=== PATIENT | female | born 1985 | race American Indian/Alaskan Native ===

== ENCOUNTER 2020-12-20 19:27 | Inpatient (IN) | payer SELFPAY ==
--- NOTE | 2020-12-20 21:12 | Emergency Department Report ---
ED General Adult HPI - General Chief complaint: Chest Pain Stated complaint: CHEST PAIN Time Seen by Provider: 12/20/20 21:08 Source: patient Mode of arrival: Ambulatory Limitations: No Limitations - History of Present Illness Initial comments: 35-year-old female patient with history of tobacco use presents to the emergency department with complaints of chest pain for 2 weeks. Patient describes the chest pain as "tightness," localized to the right side of her chest, episodic in nature, radiating underneath her right breast, lasting several minutes at a time, without identifiable exacerbating or relieving factors. Patient tested positive for COVID-19 on November 25. The chest pain did not start until after her other COVID-19 symptoms resolved. No other venous thromboembolism risk factors identified on history. No history of hypertension, hyperlipidemia, diabetes. No family history of early heart disease. Denies fever, chills, cough, wheezing, palpitations, syncope, lower extremity pain/swelling. Denies all other complaints at this time. - Related Data Allergies Allergy/AdvReac Type Severity Reaction Status Date / Time No Known Allergies Allergy Unverified 12/20/20 20:58 ED Review of Systems ROS: Stated complaint: CHEST PAIN Other details as noted in HPI Other: GENERAL: Negative for fever, chills, weight change, anorexia, fatigue. ENT: Negative for ear pain, difficulty hearing, sore throat, nasal congestion, epistaxis. CARDIOVASCULAR: Positive for chest pain. PULMONARY: Positive for shortness of breath. GASTROINTESTINAL: Negative for abdominal pain, nausea, vomiting, diarrhea, constipation. MUSCULOSKELETAL: Negative for joint pain, joint swelling, myalgias, back pain, neck pain. NEUROLOGICAL: Negative for headache, seizure, syncope, paresthesias, weakness. INTEGUMENTARY: Negative for erythema, rash, diaphoresis, laceration, ecchymosis. HEMATOLOGICAL: Negative for hemoptysis, hematemesis, hematochezia, hematuria. PSYCHIATRIC: Negative for hallucinations, suicidal ideation, homicidal ideation, anxiety, depression. ED Past Medical Hx - Past Medical History Previous Medical History?: No - Surgical History Past Surgical History?: Yes Additional Surgical History: TL ED Physical Exam - General Limitations: No Limitations - Other Other exam information: General: Awake and alert. No acute distress. Head: Atraumatic, normocephalic. Eyes: EOMI. Pupils are equal and round. Normal sclera and conjunctiva. ENT: Oral mucosa is moist. Normal pharyngeal exam. Neck: Supple. No lymphadenopathy. Pulmonary: No respiratory distress. Clear to auscultation bilaterally. Cardiac: Regular rate and rhythm. Pulses are palpable and equal bilaterally. No lower extremity cyanosis or edema. Skin: Warm and dry. No rashes. Abdomen: Soft, non-protuberant. Mild epigastric and RUQ tenderness without guarding, rigidity, or rebound. Bowel sounds are normal. No organomegaly or masses noted. Back: Normal alignment. No CVA tenderness. Extremities: Symmetrical. Full range of motion intact. Neurological: Alert and oriented, appropriately interactive, no focal deficits. Psych: Cooperative. Appropriate mood and affect. Speech is evenly metered. Thoughts are logically construed. ED Course Vital Signs 12/20/20 20:58 Temperature 98.7 F Pulse Rate 85 Respiratory 18 Rate Blood Pressure 115/75 [Right] O2 Sat by Pulse 100 Oximetry ED Medical Decision Making - Lab Data Result diagrams: 12/20/20 21:17 12/20/20 21:17 - Radiology Data [facility] [address] [place] [address] Ultrasound Report Signed Patient: REJI GUZMÁN MR#: [id number] : 1985 Acct:[id number] Age/Sex: 35 / F ADM Date: 12/20/20 Loc: ED Attending Dr: Ordering Physician: KATE JESSICA Date of Service: 12/20/20 Procedure(s): US abdomen complete Accession Number(s): [id number] cc: KATE JESSICA ULTRASOUND ABDOMEN, COMPLETE INDICATION: right chest/RUQ pain - elevated LFT's COMPARISON: None available. FINDINGS: Pancreas: Normal. Abdominal Aorta: Normal. IVC: Normal. Liver: Normal. Gallbladder: There are numerous stones filling the gallbladder. Bile ducts: Normal. Common Bile Duct measures 5-6 mm. Right Kidney: Normal. Left Kidney: Normal. Spleen: Normal. Free fluid: None. Additional Findings: None. IMPRESSION: 1. Cholelithiasis. No sonographic evidence of acute cholecystitis. No biliary dilatation. 2. Otherwise unremarkable abdominal ultrasound. Signer Name: Alfa Flores MD Signed: 12/21/2020 12:02 AM Workstation Name: [id number] Transcribed By: BETTIE Dictated By: Alfa Flores MD Electronically Authenticated By: Alfa Flores MD Signed Date/Time: 12/21/20 0002 DD/ 2356 TD/TT: - Medical Decision Making Differential diagnosis including but not limited to: acute coronary syndrome, cardiac arrhythmia, pericarditis, pericardial effusion/cardiac tamponade, pleural effusion, pulmonary embolism, pneumonia, pneumothorax 21:08: Ordered EKG, labs, CXR. Requested cardiac catheterization technician and continuous pulse oximetry. 02:04: On reevaluation, patient remains stable. Pain is controlled. Labs show elevated liver enzymes. Abdominal ultrasound obtained for further evaluation. Ultrasound shows multiple gallstones. No evidence of cholecystitis or common bile duct dilatation. D-dimer was also significantly elevated; CTA of the chest is negative for PE. EKG is pending. Nurse aware of EKG order. Lipase is > 800. Presentation is most suggestive of gallstone pancreatitis however patient also endorses occasional alcohol use upon further interrogation, last alcohol use was less than 1 week ago. Case discussed with Dr. Lugo, planer offbearer, who agrees to evaluate patient in the morning following admission to hospitalist service. Case discussed with hospitalist, who agrees to admit. Patient expressed understanding and is agreeable to plan of care. Patient is NPO. Given IV fluids, analgesics, antiemetics. Case discussed with Dr. Bradshaw, attending emergency physician, who agrees with diagnostic work-up/plan of care. Critical care attestation.: If time is entered above; I have spent that time in minutes in the direct care of this critically ill patient, excluding procedure time. ED Disposition Clinical Impression: History of alcohol use, Transaminitis Pancreatitis Qualifiers: Chronicity: acute Pancreatitis type: unspecified pancreatitis type Acute pancreatitis complication: unspecified Qualified Code(s): K85.90 - Acute pancreatitis without necrosis or infection, unspecified Cholelithiasis Qualifiers: Cholelithiasis location: gallbladder Cholecystitis presence: without cholecystitis Biliary obstruction: without biliary obstruction Qualified Code(s): K80.20 - Calculus of gallbladder without cholecystitis without obstruction Disposition: ADMITTED INPATIENT Is pt being admited?: Yes Does the pt Need Aspirin: No Condition: Stable Time of Disposition: 02:10
[2020-12-20 21:38] LABS: Basophils % (Auto) 0.2 % (0.0-1.8); Eosinophils # (Auto) 0.3 K/mm3 (0.0-0.4); Eosinophils % (Auto) 2.6 % (0.0-4.3); Hematocrit 37.1 % (30.3-42.9); Hemoglobin 12.3 gm/dl (10.1-14.3); Lymphocytes # (Auto) 2.5 K/mm3 (1.2-5.4); Lymphocytes % (Auto) 23.8 % (13.4-35.0); Mean Corpuscular HGB Conc 33 % (30-34); Mean Corpuscular Volume 91 fl (79-97); Monocytes # (Auto) 0.5 K/mm3 (0.0-0.8); Monocytes % (Auto) 4.8 % (0.0-7.3); Platelet Count 264 K/mm3 (140-440); Red Blood Count 4.08 M/mm3 (3.65-5.03); Red Cell Distribution Width 13.9 % (13.2-15.2)
[2020-12-20 22:17] LABS: Alanine Aminotransferase 185 units/L (7-56); Blood Urea Nitrogen 9 mg/dL (7-17); Hemolysis Index 20
[2020-12-20 22:18] LABS: BUN/Creatinine Ratio 15
--- NOTE | 2020-12-20 22:33 | XRay Report ---
CHEST 2 VIEWS INDICATION / CLINICAL INFORMATION: chest pain. COMPARISON: None available. FINDINGS: SUPPORT DEVICES: None. HEART / MEDIASTINUM: No significant abnormality. LUNGS / PLEURA: No significant pulmonary or pleural abnormality. No pneumothorax. ADDITIONAL FINDINGS: No significant additional findings. IMPRESSION: 1. No acute findings. Signer Name: Ike Marvin DO Signed: 12/20/2020 10:29 PM Workstation Name: [id number]
--- NOTE | 2020-12-21 00:06 | Ultrasound Report ---
ULTRASOUND ABDOMEN, COMPLETE INDICATION: right chest/RUQ pain - elevated LFT's COMPARISON: None available. FINDINGS: Pancreas: Normal. Abdominal Aorta: Normal. IVC: Normal. Liver: Normal. Gallbladder: There are numerous stones filling the gallbladder. Bile ducts: Normal. Common Bile Duct measures 5-6 mm. Right Kidney: Normal. Left Kidney: Normal. Spleen: Normal. Free fluid: None. Additional Findings: None. IMPRESSION: 1. Cholelithiasis. No sonographic evidence of acute cholecystitis. No biliary dilatation. 2. Otherwise unremarkable abdominal ultrasound. Signer Name: Alfa Flores MD Signed: 12/21/2020 12:02 AM Workstation Name: [id number]
--- NOTE | 2020-12-21 01:39 | Cat Scan Report ---
CTA CHEST WITH IV CONTRAST INDICATION: Pt complains of chest pain, recent positive COVID-19, r/o PE. TECHNIQUE: Axial CT images were obtained through the chest after injection of IV contrast. 3 plane MIP reconstru ctions were produced. All CT scans at this location are performed using CT dose reduction for ALARA b y means of automated exposure control. COMPARISON: None available. FINDINGS: Pulmonary Arteries: No pulmonary emboli. Thoracic Aorta: No acute abnormality. Heart: Normal. Lungs: No acute air space or interstitial disease. Pleura: No pleural effusion. No pneumothorax. Lymph Nodes: No significant adenopathy. Additional Findings: None. Upper Abdomen: There is minimal cholelithiasis. Gallbladder is contracted. Skeletal Structures: No significant osseous abnormality. IMPRESSION: 1. No CT evidence for pulmonary embolism. 2. No acute findings. Signer Name: Alfa Flores MD Signed: 12/21/2020 1:34 AM Workstation Name: [id number]
[2020-12-21] MEDS ORDERED: HYDROmorphone 1 MG/1 ML INJ IV ONE (01:46)
[2020-12-21] MEDS ORDERED: ONDANSETRON 4 MG/2 ML INJ IV ONE (01:46)
[2020-12-21] MEDS ORDERED: SODIUM CHLORIDE 0.9% 1000 ML 1,000 ML IV ONE (01:46)
[2020-12-21] MEDS ORDERED: ONDANSETRON 4 MG/2 ML INJ IV PRN (02:30)
[2020-12-21] MEDS ORDERED: oxyCODONE /ACETAMINOPHEN 5-325MG TAB PO PRN (02:30)
[2020-12-21] MEDS ORDERED: ACETAMINOPHEN 325 MG TAB PO PRN (02:30)
--- NOTE | 2020-12-21 02:37 | History and Physical Report ---
History of Present Illness Date of examination: 12/21/20 Date of admission: 12/21/20 02:11 Chief complaint: Chest pain History of present illness: 35-year-old female patient with history of tobacco and possibly alcohol abuse presents to the emergency department with complaints of chest pain for 2 weeks. chest pain as "tightness," localized to the right side of her chest, episodic in nature, radiating underneath her right breast, lasting several minutes at a donal e, without identifiable exacerbating or relieving factors. Patient tested positive for COVID-19 on November 25. The chest pain did not start until after her other COVID-19 symptoms resolved. No other venous thromboembolism risk factors identified on history. In the emergency room patient is found to have gallstone pancreatitis. Patient abdominal ultrasound showed cholelithiasis. No sonographic evidence of acute cholecystitis. No biliary dilatation. Otherwise unremarkable abdominal ultra sound. Patient lipase is 815. AST 363 and ALT 185 alkaline phosphatase 134. Med rec need to be done. Advance discharge process is initiated Past History Past Medical History: other (Tobacco and alcohol abuse) Medications and Allergies Allergies Allergy/AdvReac Type Severity Reaction Status Date / Time No Known Allergies Allergy Unverified 12/20/20 20:58 Active Meds: Active Medications Sodium Chloride (Nacl 0.9% 1000 Ml) 1,000 mls @ 125 mls/hr IV ONCE ONE Stop: 12/21/20 09:45 Last Admin: 12/21/20 01:54 Dose: 125 mls/hr Documented by: Sodium Chloride (Sodium Chloride 0.9% 10 Ml Flush Syringe) 10 ml IV PRN PRN PRN Reason: LINE FLUSH Review of Systems All systems: negative Cardiovascular: chest pain Gastrointestinal: abdominal pain Exam - Constitutional Vitals: Temp Pulse Resp BP Pulse Ox 98.7 F 85 18 115/75 100 12/20/20 20:58 12/20/20 20:58 12/20/20 20:58 12/20/20 20:58 12/20/20 20:58 General appearance: Present: no acute distress, well-nourished - EENT Eyes: Present: PERRL ENT: hearing intact, clear oral mucosa - Neck Neck: Present: supple, normal ROM - Respiratory Respiratory effort: normal Respiratory: bilateral: CTA - Cardiovascular Heart Sounds: Present: S1 & S2. Absent: rub, click - Extremities Extremities: pulses symmetrical, No edema Peripheral Pulses: within normal limits - Abdominal General gastrointestinal: Present: soft, non-tender, non-distended, normal bowel sounds, other (Mild epigastric and right upper quadrant tenderness without guarding, rigidity or no rebound) Female genitourinary: Present: normal - Integumentary Integumentary: Present: clear, warm, dry - Musculoskeletal Musculoskeletal: gait normal, strength equal bilaterally - Psychiatric Psychiatric: appropriate mood/affect, intact judgment & insight - Neurologic Neurologic: CNII-XII intact, moves all extremities HEART Score - HEART Score Troponin: Troponin T < 0.010 ng/mL (0.00-0.029) 12/20/20 21:17 Results - Labs CBC & Chem 7: 12/20/20 21:17 12/20/20 21:17 Labs: Laboratory Last Values WBC 10.5 K/mm3 (4.5-11.0) 12/20/20 21:17 RBC 4.08 M/mm3 (3.65-5.03) 12/20/20 21:17 Hgb 12.3 gm/dl (10.1-14.3) 12/20/20 21:17 Hct 37.1 % (30.3-42.9) 12/20/20 21:17 MCV 91 fl (79-97) 12/20/20 21:17 MCH 30 pg (28-32) 12/20/20 21:17 MCHC 33 % (30-34) 12/20/20 21:17 RDW 13.9 % (13.2-15.2) 12/20/20 21:17 Plt Count 264 K/mm3 (140-440) 12/20/20 21:17 Lymph % (Auto) 23.8 % (13.4-35.0) 12/20/20 21:17 [place] % (Auto) 4.8 % (0.0-7.3) 12/20/20 21:17 Eos % (Auto) 2.6 % (0.0-4.3) 12/20/20 21:17 Baso % (Auto) 0.2 % (0.0-1.8) 12/20/20 21:17 Lymph # (Auto) 2.5 K/mm3 (1.2-5.4) 12/20/20 21:17 [place] # (Auto) 0.5 K/mm3 (0.0-0.8) 12/20/20 21:17 Eos # (Auto) 0.3 K/mm3 (0.0-0.4) 12/20/20 21:17 Baso # (Auto) 0.0 K/mm3 (0.0-0.1) 12/20/20 21:17 Seg Neutrophils % 68.6 % (40.0-70.0) 12/20/20 21:17 Seg Neutrophils # 7.2 K/mm3 (1.8-7.7) 12/20/20 21:17 D-Dimer 1308.05 ng/mlDDU (0-234) H 12/20/20 21:17 Sodium 136 mmol/L (137-145) L 12/20/20 21:17 Potassium 3.9 mmol/L (3.6-5.0) 12/20/20 21:17 Chloride 103.4 mmol/L (98-107) 12/20/20 21:17 Carbon Dioxide 21 mmol/L (22-30) L 12/20/20 21:17 Anion Gap 16 mmol/L 12/20/20 21:17 BUN 9 mg/dL (7-17) 12/20/20 21:17 Creatinine 0.6 mg/dL (0.6-1.2) 12/20/20 21:17 Estimated GFR > 60 ml/min 12/20/20 21:17 BUN/Creatinine Ratio 15 % 12/20/20 21:17 Glucose 94 mg/dL (65-100) 12/20/20 21:17 Calcium 9.0 mg/dL (8.4-10.2) 12/20/20 21:17 Magnesium 1.90 mg/dL (1.7-2.3) 12/20/20 21:17 Total Bilirubin 0.40 mg/dL (0.1-1.2) 12/20/20 21:17 AST 363 units/L (5-40) H 12/20/20 21:17 ALT 185 units/L (7-56) H 12/20/20 21:17 Alkaline Phosphatase 134 units/L (35-129) H 12/20/20 21:17 Troponin T < 0.010 ng/mL (0.00-0.029) 12/20/20 21:17 Total Protein 7.4 g/dL (6.3-8.2) 12/20/20 21:17 Albumin 4.0 g/dL (3.9-5) 12/20/20 21:17 Albumin/Globulin Ratio 1.2 % 12/20/20 21:17 Lipase 815 units/L (13-60) H 12/20/20 21:27 HCG, Qual Negative (Negative) 12/20/20 21:17 - Imaging and Cardiology CT scan - chest: report reviewed US - abdomen: report reviewed Assessment and Plan VTE prophylaxis?: Chemical Plan of care discussed with patient/family: Yes - Patient Problems (1) Pancreatitis Current Visit: Yes Status: Acute Qualifiers: Chronicity: acute Pancreatitis type: unspecified pancreatitis type Acute pancreatitis complication: unspecified Qualified Code(s): K85.90 - Acute pancreatitis without necrosis or infection, unspecified Plan to address problem: Admit the patient to the medical floor . N.p.o. IV fluid D5 half-normal saline at the rate of 100 cc/h. Pepcid 20 mg IV every 12 hours. Dilaudid 0.5 mg p.o. every 3 hours as needed. Will consult GI Dr. For further evaluation and treatment. Recheck CBC CMP in the morning (2) Cholelithiasis Current Visit: Yes Status: Acute Qualifiers: Cholelithiasis location: gallbladder Cholecystitis presence: without cholecystitis Biliary obstruction: without biliary obstruction Qualified Code(s): K80.20 - Calculus of gallbladder without cholecystitis without obstruction Plan to address problem: N.p.o. IV fluid D5 half-normal saline at the rate of 100 cc/h. Pepcid 20 mg IV every 12 hours. Dilaudid 0.5 mg p.o. every 3 hours as needed. Will consult GI Dr. For further evaluation and treatment. Recheck CBC CMP in the morning. Consult surgery if needed (3) History of alcohol use Current Visit: Yes Status: Acute Plan to address problem: We counseled regarding quit drinking. We put the patient on thiamine 100 mg p.o. daily, folic acid 1 mg p.o. daily. (4) Transaminitis Current Visit: Yes Status: Acute Plan to address problem: N.p.o. IV fluid D5 half-normal saline at the rate of 100 cc/h. Pepcid 20 mg IV every 12 hours. Dilaudid 0.5 mg p.o. every 3 hours as needed. Will consult GI Dr. For further evaluation and treatment. Recheck CBC CMP in the morning (5) DVT prophylaxis Current Visit: Yes Status: Acute Plan to address problem: Heparin 5000 units subcu every 8 hours for DVT prophylaxis. Pepcid 20 mg IV every 12 hours for GI prophylaxis. Patient is a full code
[2020-12-21] MEDS ORDERED: D5W/0.45% NACL 1,000 ML IV SCH (03:00)
--- NOTE | 2020-12-21 08:35 | Progress Note ---
Assessment and Plan Assessment and plan: History of present illness: 35-year-old female patient with history of tobacco and possibly alcohol abuse presents to the emergency department with complaints of chest pain for 2 weeks. chest pain as "tightness," localized to the right side of her chest, episodic in nature, radiating underneath her right breast, lasting several minutes at a time, without identifiable exacerbating or relieving factors. Patient tested positive for COVID-19 on November 25. The chest pain did not start until after her other COVID-19 symptoms resolved. No other venous thromboembolism risk factors identified on history. In the emergency room patient is found to have gallstone pancreatitis. Patient abdominal ultrasound showed cholelithiasis. No sonographic evidence of acute cholecystitis. No biliary dilatation. Otherwise unremarkable abdominal ultrasound. Patient lipase is 815. AST 363 and ALT 185 alkaline phosphatase 134. Hospital course to date: 12/21/2020: Follow GI and Gen surgery recs. continue NPO and pain control. Follow MRCP results. (1) Pancreatitis Plan to address problem: RUQ abdominal pain radiating to right shoulder. US abd: gallstones, no biliary duct dilation. N.p.o. IV fluid D5 half-normal saline at the rate of 100 cc/h. Pepcid 20 mg IV every 12 hours. Dilaudid 0.5 mg p.o. every 3 hours as needed. MRCP pending GI following patient General surgery consulted. Recheck CBC CMP in the morning (2) Cholelithiasis Plan to address problem: patient denies prior knowledge of gall stones and denies any prior symptoms typical of biliary colic. US findings as above MRCP pending Gen surgery consulted (3) History of alcohol use Plan to address problem: States she only uses recreationally. Denies heavy abuse Counseled on alcohol cessation. thiamine 100 mg p.o. daily, folic acid 1 mg p.o. daily. (4) Transaminitis Plan to address problem: AST 363, ALT 185, ALP 134. consistent with alcoholic pancreatitis. Elevated ALP possible stone obstruction now cleared. MRCP pending. (5) DVT prophylaxis Plan to address problem: Heparin 5000 units subcu every 8 hours for DVT prophylaxis. Pepcid 20 mg IV every 12 hours for GI prophylaxis. Patient is a full code History Interval history: Relatively asympomatic compared to initial presentation. Some mild RUQ tenderness noted upon palpation of RUQ Hospitalist Physical - Physical exam Narrative exam: General appearance: Present: no acute distress, well-nourished - EENT Eyes: Present: PERRL ENT: hearing intact, clear oral mucosa - Neck Neck: Present: supple, normal ROM - Respiratory Respiratory effort: normal Respiratory: bilateral: CTA - Cardiovascular Heart Sounds: Present: S1 & S2. Absent: rub, click - Extremities Extremities: pulses symmetrical, No edema Peripheral Pulses: within normal limits - Abdominal General gastrointestinal: Present: soft, non-tender, non-distended, normal bowel sounds, other (Mild epigastric and right upper quadrant tenderness without guarding, rigidity or no rebound) Female genitourinary: Present: normal - Integumentary Integumentary: Present: clear, warm, dry - Musculoskeletal Musculoskeletal: gait normal, strength equal bilaterally - Psychiatric Psychiatric: appropriate mood/affect, intact judgment & insight - Neurologic Neurologic: CNII-XII intact, moves all extremities - Constitutional Vitals: Temp Pulse Resp BP Pulse Ox 98.7 F 85 18 115/75 100 12/20/20 20:58 12/20/20 20:58 12/20/20 20:58 12/20/20 20:58 12/20/20 20:58 General appearance: Present: no acute distress, well-nourished HEART Score - HEART Score Troponin: Troponin T < 0.010 ng/mL (0.00-0.029) 12/20/20 21:17 Results - Labs CBC & Chem 7: 12/20/20 21:17 12/20/20 21:17 Labs: Laboratory Last Values WBC 10.5 K/mm3 (4.5-11.0) 12/20/20 21:17 RBC 4.08 M/mm3 (3.65-5.03) 12/20/20 21:17 Hgb 12.3 gm/dl (10.1-14.3) 12/20/20 21:17 Hct 37.1 % (30.3-42.9) 12/20/20 21:17 MCV 91 fl (79-97) 12/20/20 21:17 MCH 30 pg (28-32) 12/20/20 21:17 MCHC 33 % (30-34) 12/20/20 21:17 RDW 13.9 % (13.2-15.2) 12/20/20 21:17 Plt Count 264 K/mm3 (140-440) 12/20/20 21:17 Lymph % (Auto) 23.8 % (13.4-35.0) 12/20/20 21:17 [place] % (Auto) 4.8 % (0.0-7.3) 12/20/20 21:17 Eos % (Auto) 2.6 % (0.0-4.3) 12/20/20 21:17 Baso % (Auto) 0.2 % (0.0-1.8) 12/20/20 21:17 Lymph # (Auto) 2.5 K/mm3 (1.2-5.4) 12/20/20 21:17 [place] # (Auto) 0.5 K/mm3 (0.0-0.8) 12/20/20 21:17 Eos # (Auto) 0.3 K/mm3 (0.0-0.4) 12/20/20 21:17 Baso # (Auto) 0.0 K/mm3 (0.0-0.1) 12/20/20 21:17 Seg Neutrophils % 68.6 % (40.0-70.0) 12/20/20 21:17 Seg Neutrophils # 7.2 K/mm3 (1.8-7.7) 12/20/20 21:17 D-Dimer 1308.05 ng/mlDDU (0-234) H 12/20/20 21:17 Sodium 136 mmol/L (137-145) L 12/20/20 21:17 Potassium 3.9 mmol/L (3.6-5.0) 12/20/20 21:17 Chloride 103.4 mmol/L (98-107) 12/20/20 21:17 Carbon Dioxide 21 mmol/L (22-30) L 12/20/20 21:17 Anion Gap 16 mmol/L 12/20/20 21:17 BUN 9 mg/dL (7-17) 12/20/20 21:17 Creatinine 0.6 mg/dL (0.6-1.2) 12/20/20 21:17 Estimated GFR > 60 ml/min 12/20/20 21:17 BUN/Creatinine Ratio 15 % 12/20/20 21:17 Glucose 94 mg/dL (65-100) 12/20/20 21:17 Calcium 9.0 mg/dL (8.4-10.2) 12/20/20 21:17 Magnesium 1.90 mg/dL (1.7-2.3) 12/20/20 21:17 Total Bilirubin 0.40 mg/dL (0.1-1.2) 12/20/20 21:17 AST 363 units/L (5-40) H 12/20/20 21:17 ALT 185 units/L (7-56) H 12/20/20 21:17 Alkaline Phosphatase 134 units/L (35-129) H 12/20/20 21:17 Troponin T < 0.010 ng/mL (0.00-0.029) 12/20/20 21:17 Total Protein 7.4 g/dL (6.3-8.2) 12/20/20 21:17 Albumin 4.0 g/dL (3.9-5) 12/20/20 21:17 Albumin/Globulin Ratio 1.2 % 12/20/20 21:17 Lipase 815 units/L (13-60) H 12/20/20 21:27 HCG, Qual Negative (Negative) 12/20/20 21:17 Active Medications - Current Medications Current Medications: Generic Name Dose Route Start Last Admin Trade Name Freq PRN Reason Stop Dose Admin Acetaminophen 650 mg 12/21/20 02:30 Acetaminophen 325 Mg Tab PO Q4H PRN Pain MILD(1-3)/Fever >100.5/CHRISTINA Famotidine 20 mg 12/21/20 10:00 Famotidine 20 Mg/2 Ml Inj IV BID BRANDON Folic Acid 1 mg 12/21/20 10:00 Folic Acid 1 Mg Tab PO QDAY BRANDON Heparin Sodium (Porcine) 5,000 unit 12/21/20 06:00 Heparin 5,000 Unit/1 Ml Vial SUB-Q Q8HR BRANDON Hydromorphone HCl 0.5 mg 12/21/20 02:30 Hydromorphone 1 Mg/1 Ml Inj IV Q3H PRN Pain , Severe (7-10) Sodium Chloride 1,000 mls @ 125 mls/hr 12/21/20 01:46 12/21/20 01:54 Nacl 0.9% 1000 Ml IV 12/21/20 09:45 125 mls/hr ONCE ONE Administration Dextrose/Sodium Chloride 1,000 mls @ 100 mls/hr 12/21/20 03:00 D5/0.45ns IV DIRECT BRANDON Ondansetron HCl 4 mg 12/21/20 02:30 Ondansetron 4 Mg/2 Ml Inj IV Q8H PRN Nausea And Vomiting Oxycodone/Acetaminophen 1 tab 12/21/20 02:30 Oxycodone /Acetaminophen 5-325mg Tab PO Q6H PRN Pain, Moderate (4-6) Sodium Chloride 10 ml 12/21/20 10:00 Sodium Chloride 0.9% 10 Ml Flush Syringe IV BID BRANDON Sodium Chloride 10 ml 12/21/20 02:30 Sodium Chloride 0.9% 10 Ml Flush Syringe IV PRN PRN LINE FLUSH Thiamine HCl 100 mg 12/21/20 10:00 Thiamine 100 Mg Tab PO QDAY BRANDON
[2020-12-21] MEDS: HEPARIN 5,000 UNIT/1 ML VIAL SUB-Q SCH ×2 (08:44→15:19)
--- NOTE | 2020-12-21 10:17 | Electrocardiograph Report ---
[facility] Test Date: 2020-12-21 Test Time: 02:14:52 Pat Name: REJI GUZMÁN Department: Room: [place] [address] Gender: F Train Attendant: [id number] : 1985 Requested By: SOM WOLFE Order Number: [id number] Reading MD: Cb Dubois Measurements Intervals Todd Rate: 73 P: 55 MA: 150 QRS: 77 QRSD: 79 T: 54 QT: 392 QTc: 432 Interpretive Statements Sinus rhythm No previous ECG available for comparison Electronically Signed On 12-21-2020 10:16:38 EDT by Cb Dubois
[2020-12-21] MEDS: THIAMINE 100 MG TAB PO SCH (11:30)
[2020-12-21] MEDS: FAMOTIDINE 20 MG/2 ML INJ IV SCH (11:30)
[2020-12-21] MEDS: FOLIC ACID 1 MG TAB PO SCH (11:30)
--- NOTE | 2020-12-21 12:11 | Gastroenterology Consultation ---
History of Present Illness - Reason for Consult Consult date: 12/21/20 gallstone pancreatitis Requesting physician: MADDISON ARAMBULA - History of Present Illness This is a 35 yo female presenting to the ED for chest pain x 2 weeks. GI consulted for pancreatitis. Patient reports having COVID with upper respiratory symptoms treated with OTC medications recently. Test positive on 11/25/2020. She started having chest pain radiating under her right breast. No nausea/vomiting, diarrhea, or blood in the stools. In the ED, CT chest showed no signs of PE. Labs remarkable for lipase 815, AST 363, ALT 185, alk phos 134. US showed gallstones, no signs of acute cholecystit is, and no biliary ductal dilatation. No prior h/o pancreatitis or liver disease. Reports occasional alcohol use with last use last week. No new medications started. Medication list reviewed. Past History Past Medical History: other (Tobacco and alcohol abuse) Medications and Allergies Allergies Allergy/AdvReac Type Severity Reaction Status Date / Time No Known Allergies Allergy Verified 12/21/20 02:36 Active Meds: Active Medications Acetaminophen (Acetaminophen 325 Mg Tab) 650 mg PO Q4H PRN PRN Reason: Pain MILD(1-3)/Fever >100.5/CHRISTINA Famotidine (Famotidine 20 Mg/2 Ml Inj) 20 mg IV BID [facility] Last Admin: 12/21/20 11:30 Dose: 20 mg Documented by: Folic Acid (Folic Acid 1 Mg Tab) 1 mg PO QDAY [facility] Last Admin: 12/21/20 11:30 Dose: 1 mg Documented by: Heparin Sodium (Porcine) (Heparin 5,000 Unit/1 Ml Vial) 5,000 unit SUB-Q Q8HR [facility] Last Admin: 12/21/20 08:44 Dose: Not Given Documented by: Hydromorphone HCl (Hydromorphone 1 Mg/1 Ml Inj) 0.5 mg IV Q3H PRN PRN Reason: Pain , Severe (7-10) Dextrose/Sodium Chloride (D5/0.45ns) 1,000 mls @ 100 mls/hr IV DIRECT [facility] Ondansetron HCl (Ondansetron 4 Mg/2 Ml Inj) 4 mg IV Q8H PRN PRN Reason: Nausea And Vomiting Oxycodone/Acetaminophen (Oxycodone /Acetaminophen 5-325mg Tab) 1 tab PO Q6H PRN PRN Reason: Pain, Moderate (4-6) Sodium Chloride (Sodium Chloride 0.9% 10 Ml Flush Syringe) 10 ml IV BID [facility] Last Admin: 12/21/20 11:30 Dose: 10 ml Documented by: Sodium Chloride (Sodium Chloride 0.9% 10 Ml Flush Syringe) 10 ml IV PRN PRN PRN Reason: LINE FLUSH Thiamine HCl (Thiamine 100 Mg Tab) 100 mg PO QDAY [facility] Last Admin: 12/21/20 11:30 Dose: 100 mg Documented by: Review of Systems - Review of Systems All systems: negative Constitutional: no weight loss, no weight gain, no fever, no chills Cardiovascular: chest pain, no edema, no palpitations Respiratory: no cough, no shortness of breath Gastrointestinal: abdominal pain, no nausea, no vomiting, no diarrhea, no constipation, no melena, no hematochezia Musculoskeletal: no gait dysfunction Neurological: no head injury, no weakness Psychiatric: no anxiety Endocrine: no cold intolerance Hematologic/Lymphatic: no easy bruising Allergic/Immunologic: no wheezing Exam - Constitutional Vital Signs: Temp Pulse Resp BP Pulse Ox 98.7 F 69 12 105/58 100 12/20/20 20:58 12/21/20 11:31 12/21/20 11:31 12/21/20 11:31 12/21/20 11:31 General appearance: no acute distress - EENT Eyes: EOM intact ENT: hearing intact - Respiratory Respiratory effort: normal - Cardiovascular Rhythm: regular Heart Sounds: Present: S1 & S2 - Gastrointestinal General gastrointestinal: Present: soft, tender, non-distended - Integumentary Integumentary: Present: clear, warm - Neurologic Neurological: alert and oriented x3 - Labs CBC & Chem 7: 12/20/20 21:17 12/20/20 21:17 Lab Results: Laboratory Results - last 24 hr 12/20/20 12/20/20 12/20/20 21:17 21:17 21:17 WBC 10.5 RBC 4.08 Hgb 12.3 Hct 37.1 MCV 91 MCH 30 MCHC 33 RDW 13.9 Plt Count 264 Lymph % (Auto) 23.8 Churchill % (Auto) 4.8 Eos % (Auto) 2.6 Baso % (Auto) 0.2 Lymph # (Auto) 2.5 Churchill # (Auto) 0.5 Eos # (Auto) 0.3 Baso # (Auto) 0.0 Seg Neutrophils % 68.6 Seg Neutrophils # 7.2 D-Dimer 1308.05 H Sodium 136 L Potassium 3.9 Chloride 103.4 Carbon Dioxide 21 L Anion Gap 16 BUN 9 Creatinine 0.6 Estimated GFR > 60 BUN/Creatinine Ratio 15 Glucose 94 Calcium 9.0 Magnesium 1.90 Total Bilirubin 0.40 AST 363 H ALT 185 H Alkaline Phosphatase 134 H Troponin T < 0.010 Total Protein 7.4 Albumin 4.0 Albumin/Globulin Ratio 1.2 Lipase HCG, Qual 12/20/20 12/20/20 21:17 21:27 WBC RBC Hgb Hct MCV MCH MCHC RDW Plt Count Lymph % (Auto) Churchill % (Auto) Eos % (Auto) Baso % (Auto) Lymph # (Auto) Churchill # (Auto) Eos # (Auto) Baso # (Auto) Seg Neutrophils % Seg Neutrophils # D-Dimer Sodium Potassium Chloride Carbon Dioxide Anion Gap BUN Creatinine Estimated GFR BUN/Creatinine Ratio Glucose Calcium Magnesium Total Bilirubin AST ALT Alkaline Phosphatase Troponin T Total Protein Albumin Albumin/Globulin Ratio Lipase 815 H HCG, Qual Negative - Imaging Ultrasound: report reviewed Assessment and Plan This is a 35 yo female presenting to the ED for chest pain x 2 weeks. GI c onsulted for pancreatitis. # Acute pancreatitis - Labs remarkable for lipase 815, AST 363, ALT 185, alk phos 134. - US showed gallstones, no signs of acute cholecystitis, and no biliary ductal dilatation. - etiology possibly 2/2 alcohol vs gallstone pancreatitis - HD stable. Rec - keep NPO - IVF resuscitation - will recheck labs including LFTs, INR, and viral hep panel - recommend MRCP to evaluate for any choledocholithiasis - consult surgery. Discussed with Dr. Estrella. - will follow.
[2020-12-21 14:27] LABS: Albumin 3.9 g/dL (3.9-5); Bilirubin,Direct 0.7 mg/dL (0-0.2)
[2020-12-21 14:28] LABS: INR 0.97 (0.87-1.13)
[2020-12-21 14:47] LABS: Alanine Aminotransferase > 700 units/L (7-56)
[2020-12-21] MEDS ORDERED: LIDOCAINE VISCOUS 2% 15 ML ORAL LIQD PO SCH (15:30)
--- NOTE | 2020-12-21 15:53 | Magnetic Resonance Report ---
MRI ABDOMEN WITHOUT CONTRAST INDICATION / CLINICAL INFORMATION: rule out biliary obstruction. TECHNIQUE: Multiplanar, multisequence series were obtained through the abdomen. COMPARISON: Complete abdominal ultrasound dated 12/20/2020 FINDINGS: LOWER CHEST: No significant abnormality. LIVER: No significant abnormality. GALLBLADDER: Cholelithiasis. No pericholecystic fluid. BILE DUCTS: No choledocholithiasis. No intra or extrahepatic biliary ductal dilatation. PANCREAS: No significant abnormality. SPLEEN: No significant abnormality. ADRENALS: No significant abnormality. RIGHT KIDNEY / URETER: No significant abnormality. LEFT KIDNEY / URETER: No significant abnormality. STOMACH / VISUALIZED BOWEL: No significant abnormality. PERITONEUM: No free fluid. No free air. No fluid collection. LYMPH NODES: No significant adenopathy. AORTA / ARTERIES: No significant abnormality. IVC / VEINS: No significant abnormality. ADDITIONAL FINDINGS: None. SKELETAL SYSTEM: No significant abnormality. IMPRESSION: 1. Cholelithiasis. 2. Normal bile ducts without evidence of choledocholithiasis. Signer Name: Ike Marvin DO Signed: 12/21/2020 3:49 PM Workstation Name: [id number]
[2020-12-21 16:36] LABS: Hepatitis C Virus Antibody Non-Reactive (NonReactive)
[2020-12-21 16:58] LABS: Hepatitis B Surface Antigen Nonreactive (Negative)
[2020-12-21] MEDS ORDERED: BENZOCAINE/MENTHOL LOZENGE MM PRN (18:35)
[2020-12-21] MEDS ORDERED: PHENOL 1.4% 177 ML BOTTLE MM PRN (18:35)
[2020-12-21] MEDS ORDERED: SODIUM CHLORIDE 0.9% 1000 ML 1,000 ML IV SCH (18:45)
--- NOTE | 2020-12-21 18:46 | Consultation ---
History of Present Illness Consult date: 12/21/20 Reason for consult: gallstones Chief complaint: chest pain - History of present illness History of present illness: 35 yo F with no PMHx who presents to ER with chest pain radiating to the right upper abdomen, back and shoulder that started yesterday. The pain is intermittent and occurred 2 times yesterday. She has had similar pain several other times in the past but did not seek medical evaluation. Pain is dull. She has not noticed any association with food. No alleviating or exacerbating factors. No f/c, n/v, sob. No diarrhea or constipation. Past History Past Medical History: No medical history, other (Tobacco and alcohol abuse) Past Surgical History: Other (tubal ligation, oral surgery) Social history: smoking (5-6 cigarettes per day), alcohol abuse (social, infrequent) Family history: no significant family history Medications and Allergies Allergies Allergy/AdvReac Type Severity Reaction Status Date / Time No Known Allergies Allergy Verified 12/21/20 02:36 Active Meds: Active Medications Acetaminophen (Acetaminophen 325 Mg Tab) 650 mg PO Q4H PRN PRN Reason: Pain MILD(1-3)/Fever >100.5/CHRISTINA Benzocaine/Menthol (Benzocaine/Menthol Lozenge) 1 each MM Q2HR PRN PRN Reason: Sore Throat Famotidine (Famotidine 20 Mg/2 Ml Inj) 20 mg IV BID COUNTS INCLUDE 234 BEDS AT THE [facility] Last Admin: 12/21/20 11:30 Dose: 20 mg Documented by: Folic Acid (Folic Acid 1 Mg Tab) 1 mg PO QDAY COUNTS INCLUDE 234 BEDS AT THE [facility] Last Admin: 12/21/20 11:30 Dose: 1 mg Documented by: Heparin Sodium (Porcine) (Heparin 5,000 Unit/1 Ml Vial) 5,000 unit SUB-Q Q8HR COUNTS INCLUDE 234 BEDS AT THE [facility] Last Admin: 12/21/20 15:19 Dose: Not Given Documented by: Hydromorphone HCl (Hydromorphone 1 Mg/1 Ml Inj) 0.5 mg IV Q3H PRN PRN Reason: Pain , Severe (7-10) Sodium Chloride (Nacl 0.9% 1000 Ml) 1,000 mls @ 150 mls/hr IV DIRECT [facility] Lidocaine HCl (Lidocaine Viscous 2% 15 Ml Oral Liqd) 15 ml PO ONCE [facility] Stop: 12/21/20 19:30 Ondansetron HCl (Ondansetron 4 Mg/2 Ml Inj) 4 mg IV Q8H PRN PRN Reason: Nausea And Vomiting Oxycodone/Acetaminophen (Oxycodone /Acetaminophen 5-325mg Tab) 1 tab PO Q6H PRN PRN Reason: Pain, Moderate (4-6) Phenol (Phenol 1.4% 177 Ml Bottle) 1 spray MM PRN PRN PRN Reason: Sore Throat Sodium Chloride (Sodium Chloride 0.9% 10 Ml Flush Syringe) 10 ml IV BID COUNTS INCLUDE 234 BEDS AT THE [facility] Last Admin: 12/21/20 11:30 Dose: 10 ml Documented by: Sodium Chloride (Sodium Chloride 0.9% 10 Ml Flush Syringe) 10 ml IV PRN PRN PRN Reason: LINE FLUSH Thiamine HCl (Thiamine 100 Mg Tab) 100 mg PO QDAY COUNTS INCLUDE 234 BEDS AT THE [facility] Last Admin: 12/21/20 11:30 Dose: 100 mg Documented by: Review of Systems All systems: negative (10 point ROS performed and negative except for that listed in HPI) Exam Vital Signs Temp Pulse Resp BP Pulse Ox 98.7 F 85 18 115/75 100 12/20/20 20:58 12/20/20 20:58 12/20/20 20:58 12/20/20 20:58 12/20/20 20:58 Narrative exam: Gen.: Awake, alert, oriented x3. No apparent distress ENT: Trachea midline. No lymphadenopathy. No scleral icterus or conjunctival pallor CV: S1, S2 present Respiratory: No audible wheezes Abdomen: Soft, nondistended, mild epigastric TTP. No rebound, rigidity, guarding Extremities: No clubbing, cyanosis, edema Results - Labs 12/20/20 21:17 12/20/20 21:17 Abnormal lab results 12/20/20 12/20/20 12/20/20 Range/Units 21:17 21:17 21:27 D-Dimer 1308.05 H (0-234) ng/mlDDU Sodium 136 L (137-145) mmol/L Carbon Dioxide 21 L (22-30) mmol/L Total Bilirubin (0.1-1.2) mg/dL Direct Bilirubin (0-0.2) mg/dL AST 363 H (5-40) units/L ALT 185 H (7-56) units/L Alkaline Phosphatase 134 H (35-129) units/L Lipase 815 H (13-60) units/L 12/21/20 Range/Units 13:42 D-Dimer (0-234) ng/mlDDU Sodium (137-145) mmol/L Carbon Dioxide (22-30) mmol/L Total Bilirubin 1.30 H (0.1-1.2) mg/dL Direct Bilirubin 0.7 H (0-0.2) mg/dL AST 1042 H (5-40) units/L ALT > 700 H (7-56) units/L Alkaline Phosphatase 211 H (35-129) units/L Lipase (13-60) units/L Diabetes panel 12/20/20 12/21/20 Range/Units 21:17 13:42 Sodium 136 L (137-145) mmol/L Potassium 3.9 (3.6-5.0) mmol/L Chloride 103.4 (98-107) mmol/L Carbon Dioxide 21 L (22-30) mmol/L BUN 9 (7-17) mg/dL Creatinine 0.6 (0.6-1.2) mg/dL Glucose 94 (65-100) mg/dL Calcium 9.0 (8.4-10.2) mg/dL AST 363 H 1042 H (5-40) units/L ALT 185 H > 700 H (7-56) units/L Alkaline Phosphatase 134 H 211 H (35-129) units/L Total Protein 7.4 6.7 (6.3-8.2) g/dL Albumin 4.0 3.9 (3.9-5) g/dL Calcium panel 12/20/20 12/21/20 Range/Units 21:17 13:42 Calcium 9.0 (8.4-10.2) mg/dL Albumin 4.0 3.9 (3.9-5) g/dL Pituitary panel 12/20/20 Range/Units 21:17 Sodium 136 L (137-145) mmol/L Potassium 3.9 (3.6-5.0) mmol/L Chloride 103.4 (98-107) mmol/L Carbon Dioxide 21 L (22-30) mmol/L BUN 9 (7-17) mg/dL Creatinine 0.6 (0.6-1.2) mg/dL Glucose 94 (65-100) mg/dL Calcium 9.0 (8.4-10.2) mg/dL Adrenal panel 12/20/20 12/21/20 Range/Units 21:17 13:42 Sodium 136 L (137-145) mmol/L Potassium 3.9 (3.6-5.0) mmol/L Chloride 103.4 (98-107) mmol/L Carbon Dioxide 21 L (22-30) mmol/L BUN 9 (7-17) mg/dL Creatinine 0.6 (0.6-1.2) mg/dL Glucose 94 (65-100) mg/dL Calcium 9.0 (8.4-10.2) mg/dL Total Bilirubin 0.40 1.30 H (0.1-1.2) mg/dL AST 363 H 1042 H (5-40) units/L ALT 185 H > 700 H (7-56) units/L Alkaline Phosphatase 134 H 211 H (35-129) units/L Total Protein 7.4 6.7 (6.3-8.2) g/dL Albumin 4.0 3.9 (3.9-5) g/dL - Imaging US - abdomen: report reviewed, image reviewed Additional studies: MRCP Assessment and Plan 35-year-old female with 1. gallstone pancreatitis 2. Transaminitis and hyperbilirubinemia Plan: 1. may start CLD 2. IVF - NS@150cc/hr 3. prn pain control 4. repeat Lipase, CMP, in am - LFTs and bilirubin trending up since yesterday 5. Recommend cholecystectomy prior to dc. Will plan for CCY when lipase and LFTS start downtrending. Explained this to patient in detail and to her mother upon pt request. All questions answered. Pt agreeable to plan. Plan discussed with patient's RN. Thank you for this consultation. Please call with any questions or concerns. Evaluation and treatment of this patient was during the time of the national and state emergency arising from COVID19 coronavirus pandemic. Treatment and procedures performed meet the current and available best practice and guidelines for patient during the COVID pandemic.
[2020-12-22] MEDS: HEPARIN 5,000 UNIT/1 ML VIAL SUB-Q SCH ×4 (01:00→21:52)
[2020-12-22] MEDS: FAMOTIDINE 20 MG/2 ML INJ IV SCH ×3 (01:00→21:52)
[2020-12-22] MEDS: HYDROmorphone 1 MG/1 ML INJ IV PRN (01:30)
[2020-12-22 05:04] LABS: Basophils % (Auto) 0.5 % (0.0-1.8); Eosinophils # (Auto) 0.5 K/mm3 (0.0-0.4); Eosinophils % (Auto) 7.4 % (0.0-4.3); Hematocrit 35.5 % (30.3-42.9); Lymphocytes # (Auto) 2.7 K/mm3 (1.2-5.4); Lymphocytes % (Auto) 42.7 % (13.4-35.0); Mean Corpuscular HGB Conc 34 % (30-34); Mean Corpuscular Volume 92 fl (79-97); Monocytes # (Auto) 0.3 K/mm3 (0.0-0.8); Monocytes % (Auto) 4.4 % (0.0-7.3); Platelet Count 248 K/mm3 (140-440); Red Blood Count 3.86 M/mm3 (3.65-5.03); Red Cell Distribution Width 13.6 % (13.2-15.2)
[2020-12-22 05:11] LABS: INR 1.03 (0.87-1.13)
[2020-12-22 05:25] LABS: Albumin 3.6 g/dL (3.9-5); Blood Urea Nitrogen 4 mg/dL (7-17); Calcium 7.9 mg/dL (8.4-10.2); Hemolysis Index 5
[2020-12-22 05:26] LABS: BUN/Creatinine Ratio 6
[2020-12-22 05:47] LABS: Alanine Aminotransferase 742 units/L (7-56)
--- NOTE | 2020-12-22 08:22 | Progress Note ---
Assessment and Plan Assessment and plan: History of present illness: 35-year-old female patient with history of tobacco and possibly alcohol abuse presents to the emergency department with complaints of chest pain for 2 weeks. chest pain as "tightness," localized to the right side of her chest, episodic in nature, radiating underneath her right breast, lasting several minutes at a time, without identifiable exacerbating or relieving factors. Patient tested positive for COVID-19 on November 25. The chest pain did not start until after her other COVID-19 symptoms resolved. No other venous thromboembolism risk factors identified on history. In the emergency room patient is found to have gallstone pancreatitis. Patient abdominal ultrasound showed cholelithiasis. No sonographic evidence of acute cholecystitis. No biliary dilatation. Otherwise unremarkable abdominal ultrasound. Patient lipase is 815. AST 363 and ALT 185 alkaline phosphatase 134. Hospital course to date: 12/21/2020: Follow GI and Gen surgery recs. continue NPO and pain control. Follow MRCP results. 12/22/2020: MRCP shows gallstones, clear bile ducts. transaminases now downtrending. GSx plans on CCY. 12/23/2020: CCY tomorrow per Gsx. NPO midnight. (1) Pancreatitis Plan to address problem: RUQ abdominal pain radiating to right shoulder. Suspect gallstone pancreatitis US abd: gallstones, no biliary duct dilation. CLD IV fluid D5 half-normal saline at the rate of 100 cc/h. Pepcid 20 mg IV every 12 hours. Dilaudid 0.5 mg p.o. every 3 hours as needed. MRCP pending: cholelithiasis, normal bile ducts. please refer to radio report. GI following patient General surgery consulted: plan for cholecystectomy (2) Cholelithiasis Plan to address problem: patient denies prior knowledge of gall stones and denies any prior symptoms typical of biliary colic. US findings as above MRCP findings as above. Gen surgery consulted: plan for cholecystectomy prior to d/c (3) History of alcohol use Plan to address problem: States she only uses recreationally. Denies heavy abuse Counseled on alcohol cessation. thiamine 100 mg p.o. daily, folic acid 1 mg p.o. daily. (4) Transaminitis Plan to address problem: AST 363, ALT 185, ALP 134, inc on afternoon labs 12/21, now downtrending consistent with gallstone pancreatitis. MRCP findings as above (5) DVT prophylaxis Plan to address problem: DVT Ppx: Heparin 5000 units subcu every 8 hours for DVT prophylaxis. Diet: CLD Patient is a full code History Interval history: Tolerating clear liquid diet. Denies N/V/abd pain. Anxious for procedure. Hospitalist Physical - Physical exam Narrative exam: General appearance: Present: no acute distress, well-nourished - EENT Eyes: Present: PERRL ENT: hearing intact, clear oral mucosa - Neck Neck: Present: supple, normal ROM - Respiratory Respiratory effort: normal Respiratory: bilateral: CTA - Cardiovascular Heart Sounds: Present: S1 & S2. Absent: rub, click - Extremities Extremities: pulses symmetrical, No edema Peripheral Pulses: within normal limits - Abdominal General gastrointestinal: Present: soft, non-tender, non-distended, normal bowel sounds, other (Mild epigastric and right upper quadrant tenderness without guarding, rigidity or no rebound) Female genitourinary: Present: normal - Integumentary Integumentary: Present: clear, warm, dry - Musculoskeletal Musculoskeletal: gait normal, strength equal bilaterally - Psychiatric Psychiatric: appropriate mood/affect, intact judgment & insight - Neurologic Neurologic: CNII-XII intact, moves all extremities - Constitutional Vitals: Temp Pulse Resp BP Pulse Ox 98.7 F 86 14 96/54 98 12/20/20 20:58 12/21/20 18:31 12/21/20 18:31 12/21/20 18:31 12/21/20 18:31 General appearance: Present: no acute distress, well-nourished HEART Score - HEART Score Troponin: Troponin T < 0.010 ng/mL (0.00-0.029) 12/20/20 21:17 Results - Labs CBC & Chem 7: 12/22/20 04:31 12/22/20 04:31 Labs: Laboratory Last Values WBC 6.3 K/mm3 (4.5-11.0) 12/22/20 04:31 RBC 3.86 M/mm3 (3.65-5.03) 12/22/20 04:31 Hgb 12.0 gm/dl (10.1-14.3) 12/22/20 04:31 Hct 35.5 % (30.3-42.9) 12/22/20 04:31 MCV 92 fl (79-97) 12/22/20 04:31 MCH 31 pg (28-32) 12/22/20 04:31 MCHC 34 % (30-34) 12/22/20 04:31 RDW 13.6 % (13.2-15.2) 12/22/20 04:31 Plt Count 248 K/mm3 (140-440) 12/22/20 04:31 Lymph % (Auto) 42.7 % (13.4-35.0) H 12/22/20 04:31 Dixon % (Auto) 4.4 % (0.0-7.3) 12/22/20 04:31 Eos % (Auto) 7.4 % (0.0-4.3) H 12/22/20 04:31 Baso % (Auto) 0.5 % (0.0-1.8) 12/22/20 04:31 Lymph # (Auto) 2.7 K/mm3 (1.2-5.4) 12/22/20 04:31 Dixon # (Auto) 0.3 K/mm3 (0.0-0.8) 12/22/20 04:31 Eos # (Auto) 0.5 K/mm3 (0.0-0.4) H 12/22/20 04:31 Baso # (Auto) 0.0 K/mm3 (0.0-0.1) 12/22/20 04:31 Seg Neutrophils % 45.0 % (40.0-70.0) 12/22/20 04:31 Seg Neutrophils # 2.9 K/mm3 (1.8-7.7) 12/22/20 04:31 PT 14.1 Sec. (12.2-14.9) 12/22/20 04:31 INR 1.03 (0.87-1.13) 12/22/20 04:31 D-Dimer 1308.05 ng/mlDDU (0-234) H 12/20/20 21:17 Sodium 138 mmol/L (137-145) 12/22/20 04:31 Potassium 3.9 mmol/L (3.6-5.0) 12/22/20 04:31 Chloride 105.5 mmol/L (98-107) 12/22/20 04:31 Carbon Dioxide 25 mmol/L (22-30) 12/22/20 04:31 Anion Gap 11 mmol/L 12/22/20 04:31 BUN 4 mg/dL (7-17) L 12/22/20 04:31 Creatinine 0.7 mg/dL (0.6-1.2) 12/22/20 04:31 Estimated GFR > 60 ml/min 12/22/20 04:31 BUN/Creatinine Ratio 6 % 12/22/20 04:31 Glucose 77 mg/dL (65-100) 12/22/20 04:31 Calcium 7.9 mg/dL (8.4-10.2) L 12/22/20 04:31 Magnesium 1.90 mg/dL (1.7-2.3) 12/20/20 21:17 Total Bilirubin 0.70 mg/dL (0.1-1.2) 12/22/20 04:31 Direct Bilirubin 0.7 mg/dL (0-0.2) H 12/21/20 13:42 Indirect Bilirubin 0.6 mg/dL 12/21/20 13:42 AST 478 units/L (5-40) H 12/22/20 04:31 ALT 742 units/L (7-56) H 12/22/20 04:31 Alkaline Phosphatase 222 units/L (35-129) H 12/22/20 04:31 Troponin T < 0.010 ng/mL (0.00-0.029) 12/20/20 21:17 Total Protein 6.5 g/dL (6.3-8.2) 12/22/20 04:31 Albumin 3.6 g/dL (3.9-5) L 12/22/20 04:31 Albumin/Globulin Ratio 1.2 % 12/22/20 04:31 Lipase 30 units/L (13-60) 12/22/20 04:31 HCG, Qual Negative (Negative) 12/20/20 21:17 Acetaminophen 5.0 ug/mL (10.0-30.0) L 12/21/20 19:26 Hepatitis A IgM Ab Non-reactive (NonReactive) 12/21/20 13:42 Hep Bs Antigen Nonreactive (Negative) 12/21/20 13:42 Hep B Core IgM Ab Non-reactive (NonReactive) 12/21/20 13:42 Hepatitis C Antibody Non-reactive (NonReactive) 12/21/20 13:42 Active Medications - Current Medications Current Medications: Generic Name Dose Route Start Last Admin Trade Name Freq PRN Reason Stop Dose Admin Acetaminophen 650 mg 12/21/20 02:30 Acetaminophen 325 Mg Tab PO Q4H PRN Pain MILD(1-3)/Fever >100.5/CHRISTINA Benzocaine/Menthol 1 each 12/21/20 18:35 Benzocaine/Menthol Lozenge MM Q2HR PRN Sore Throat Famotidine 20 mg 12/21/20 10:00 12/22/20 01:00 Famotidine 20 Mg/2 Ml Inj IV 20 mg BID [facility] Administration Folic Acid 1 mg 12/21/20 10:00 12/21/20 11:30 Folic Acid 1 Mg Tab PO 1 mg QDAY [facility] Administration Heparin Sodium (Porcine) 5,000 unit 12/21/20 06:00 12/22/20 03:34 Heparin 5,000 Unit/1 Ml Vial SUB-Q Not Given Q8HR [facility] Hydromorphone HCl 0.5 mg 12/21/20 02:30 12/22/20 01:30 Hydromorphone 1 Mg/1 Ml Inj IV 0.5 mg Q3H PRN Administration Pain , Severe (7-10) Sodium Chloride 1,000 mls @ 150 mls/hr 12/21/20 18:45 12/21/20 19:18 Nacl 0.9% 1000 Ml IV 150 mls/hr DIRECT [facility] Administration Ondansetron HCl 4 mg 12/21/20 02:30 Ondansetron 4 Mg/2 Ml Inj IV Q8H PRN Nausea And Vomiting Oxycodone/Acetaminophen 1 tab 12/21/20 02:30 Oxycodone /Acetaminophen 5-325mg Tab PO Q6H PRN Pain, Moderate (4-6) Phenol 1 spray 12/21/20 18:35 Phenol 1.4% 177 Ml Bottle MM PRN PRN Sore Throat Sodium Chloride 10 ml 12/21/20 10:00 12/22/20 01:00 Sodium Chloride 0.9% 10 Ml Flush Syringe IV 10 ml BID [facility] Administration Sodium Chloride 10 ml 12/21/20 02:30 Sodium Chloride 0.9% 10 Ml Flush Syringe IV PRN PRN LINE FLUSH Thiamine HCl 100 mg 12/21/20 10:00 12/21/20 11:30 Thiamine 100 Mg Tab PO 100 mg QDAY [facility] Administration
[2020-12-22] MEDS: THIAMINE 100 MG TAB PO SCH (11:46)
[2020-12-22] MEDS: FOLIC ACID 1 MG TAB PO SCH (11:46)
--- NOTE | 2020-12-22 11:51 | Gastroenterology Progress Note ---
Assessment and Plan This is a 35 yo female presenting to the ED for chest pain x 2 weeks. GI consulted for pancreatitis. # Acute pancreatitis - Initial labs remarkable for lipase 815, AST 363, ALT 185, alk phos 134. - US showed gallstones, no signs of acute cholecystitis, and no biliary ductal dilatation. - MRCP without signs of biliary ductal obstruction. - LFTs trended up yesterday and now trending down. Possibly has passed gallstones. - acute viral hep panel negative. - etiology possibly 2/2 alcohol vs gallstone pancreatitis - HD stable. Rec - ok for clear liquids per GI standpoint. - IVF resuscitation - monitor LFTs and INR. - follow up with surgery for possible CCY with IOC - will follow. Subjective Date of service: 12/22/20 Interval history: No acute events o/n. Patient doing well. No abdominal pain or nausea/vomiting. Objective - Constitutional Vitals: Temp Pulse Resp BP Pulse Ox 98.7 F 69 12 120/62 99 12/20/20 20:58 12/22/20 11:31 12/22/20 11:31 12/22/20 11:31 12/22/20 11:31 General appearance: no acute distress - EENT Eyes: EOM intact ENT: hearing intact - Neck Neck: supple - Respiratory Respiratory effort: normal - Cardiovascular Rhythm: regular Heart Sounds: Present: S1 & S2 - Gastrointestinal General gastrointestinal: Present: soft, non-tender, non-distended - Integumentary Integumentary: Present: clear, warm - Neurologic Neurological: alert and oriented x3 - Psychiatric Psychiatric: appropriate mood/affect - Labs CBC & Chem 7: 12/22/20 04:31 12/22/20 04:31 Labs: Laboratory Results - last 24 hr 12/21/20 12/21/20 12/21/20 13:42 13:42 13:42 WBC RBC Hgb Hct MCV MCH MCHC RDW Plt Count Lymph % (Auto) [place] % (Auto) Eos % (Auto) Baso % (Auto) Lymph # (Auto) [place] # (Auto) Eos # (Auto) Baso # (Auto) Seg Neutrophils % Seg Neutrophils # PT 13.5 INR 0.97 Sodium Potassium Chloride Carbon Dioxide Anion Gap BUN Creatinine Estimated GFR BUN/Creatinine Ratio Glucose Calcium Total Bilirubin 1.30 H Direct Bilirubin 0.7 H Indirect Bilirubin 0.6 AST 1042 H ALT > 700 H Alkaline Phosphatase 211 H Total Protein 6.7 Albumin 3.9 Albumin/Globulin Ratio 1.4 Lipase Acetaminophen Hepatitis A IgM Ab Non-reactive Hep Bs Antigen Nonreactive Hep B Core IgM Ab Non-reactive Hepatitis C Antibody Non-reactive 12/21/20 12/22/20 12/22/20 19:26 04:31 04:31 WBC 6.3 RBC 3.86 Hgb 12.0 Hct 35.5 MCV 92 MCH 31 MCHC 34 RDW 13.6 Plt Count 248 Lymph % (Auto) 42.7 H [place] % (Auto) 4.4 Eos % (Auto) 7.4 H Baso % (Auto) 0.5 Lymph # (Auto) 2.7 [place] # (Auto) 0.3 Eos # (Auto) 0.5 H Baso # (Auto) 0.0 Seg Neutrophils % 45.0 Seg Neutrophils # 2.9 PT INR Sodium 138 Potassium 3.9 Chloride 105.5 Carbon Dioxide 25 Anion Gap 11 BUN 4 L Creatinine 0.7 Estimated GFR > 60 BUN/Creatinine Ratio 6 Glucose 77 Calcium 7.9 L Total Bilirubin 0.70 Direct Bilirubin Indirect Bilirubin AST 478 H ALT 742 H Alkaline Phosphatase 222 H Total Protein 6.5 Albumin 3.6 L Albumin/Globulin Ratio 1.2 Lipase 30 Acetaminophen 5.0 L Hepatitis A IgM Ab Hep Bs Antigen Hep B Core IgM Ab Hepatitis C Antibody 12/22/20 04:31 WBC RBC Hgb Hct MCV MCH MCHC RDW Plt Count Lymph % (Auto) [place] % (Auto) Eos % (Auto) Baso % (Auto) Lymph # (Auto) [place] # (Auto) Eos # (Auto) Baso # (Auto) Seg Neutrophils % Seg Neutrophils # PT 14.1 INR 1.03 Sodium Potassium Chloride Carbon Dioxide Anion Gap BUN Creatinine Estimated GFR BUN/Creatinine Ratio Glucose Calcium Total Bilirubin Direct Bilirubin Indirect Bilirubin AST ALT Alkaline Phosphatase Total Protein Albumin Albumin/Globulin Ratio Lipase Acetaminophen Hepatitis A IgM Ab Hep Bs Antigen Hep B Core IgM Ab Hepatitis C Antibody
--- NOTE | 2020-12-22 14:17 | Progress Note ---
Assessment and Plan 35-year-old female with 1. gallstone pancreatitis 2. Transaminitis and hyperbilirubinemia Plan: 1. may adv to FLD, NPO p MN tonight 2. IVF - change to D5NS@100cc/hr 3. prn pain control 4. LFTs/Bili/Lipase trending down. Repeat CMP in am 5. Will proceed with CCY with IOC tomorrow am. Explained to patient that if surgery is done laparoscopically and IOC is negative, we may consider discharge after surgery. However if IOC is positive, she will need ERCP. She understands and all questions answered. All risks, benefits, alternatives to surgery were discussed and consent obtained for laparoscopic cholecystectomy, possible open, cholangiogram. Plan discussed with patient's RN. Thank you. Please call with any questions or concerns. Evaluation and treatment of this patient was during the time of the national and state emergency arising from COVID19 coronavirus pandemic. Treatment and procedures performed meet the current and available best practice and guidelines for patient during the COVID pandemic. Subjective Date of service: 12/22/20 Narrative: Pt seen and examined. No complaints. Tolerating clear liquids. Afebrile. No n/v. No pain Objective Vital Signs - 12hr 12/22/20 12/22/20 12/22/20 07:06 11:01 11:31 Pulse Rate 87 69 Respiratory 16 12 12 Rate Blood Pressure 120/62 120/62 O2 Sat by Pulse 100 100 99 Oximetry 12/22/20 12/22/20 12/22/20 12:01 12:31 13:01 Pulse Rate 66 103 H 72 Respiratory 17 16 9 L Rate Blood Pressure 120/62 120/62 135/82 O2 Sat by Pulse 96 99 100 Oximetry - General physical appearance Narrative Exam: Gen.: Awake, alert, oriented x3. No apparent distress ENT: Trachea midline. No lymphadenopathy. No scleral icterus or conjunctival pallor CV: S1, S2 present Respiratory: No audible wheezes Abdomen: Soft, nondistended, nontender. No rebound, rigidity, guarding Extremities: No clubbing, cyanosis, edema - Labs 12/22/20 04:31 12/22/20 04:31 Diabetes panel 12/21/20 12/22/20 Range/Units 13:42 04:31 Sodium 138 (137-145) mmol/L Potassium 3.9 (3.6-5.0) mmol/L Chloride 105.5 (98-107) mmol/L Carbon Dioxide 25 (22-30) mmol/L BUN 4 L (7-17) mg/dL Creatinine 0.7 (0.6-1.2) mg/dL Glucose 77 (65-100) mg/dL Calcium 7.9 L (8.4-10.2) mg/dL AST 1042 H 478 H (5-40) units/L ALT > 700 H 742 H (7-56) units/L Alkaline Phosphatase 211 H 222 H (35-129) units/L Total Protein 6.7 6.5 (6.3-8.2) g/dL Albumin 3.9 3.6 L (3.9-5) g/dL Calcium panel 12/21/20 12/22/20 Range/Units 13:42 04:31 Calcium 7.9 L (8.4-10.2) mg/dL Albumin 3.9 3.6 L (3.9-5) g/dL Pituitary panel 12/22/20 Range/Units 04:31 Sodium 138 (137-145) mmol/L Potassium 3.9 (3.6-5.0) mmol/L Chloride 105.5 (98-107) mmol/L Carbon Dioxide 25 (22-30) mmol/L BUN 4 L (7-17) mg/dL Creatinine 0.7 (0.6-1.2) mg/dL Glucose 77 (65-100) mg/dL Calcium 7.9 L (8.4-10.2) mg/dL Adrenal panel 12/21/20 12/22/20 Range/Units 13:42 04:31 Sodium 138 (137-145) mmol/L Potassium 3.9 (3.6-5.0) mmol/L Chloride 105.5 (98-107) mmol/L Carbon Dioxide 25 (22-30) mmol/L BUN 4 L (7-17) mg/dL Creatinine 0.7 (0.6-1.2) mg/dL Glucose 77 (65-100) mg/dL Calcium 7.9 L (8.4-10.2) mg/dL Total Bilirubin 1.30 H 0.70 (0.1-1.2) mg/dL AST 1042 H 478 H (5-40) units/L ALT > 700 H 742 H (7-56) units/L Alkaline Phosphatase 211 H 222 H (35-129) units/L Total Protein 6.7 6.5 (6.3-8.2) g/dL Albumin 3.9 3.6 L (3.9-5) g/dL
[2020-12-22] MEDS: D5W/0.9% NACL 1,000 ML IV SCH (18:06)
[2020-12-22] MEDS ORDERED: ZOLPIDEM 5 MG TAB PO ONE (22:00)
[2020-12-23 05:50] LABS: Alanine Aminotransferase 445 units/L (7-56); Albumin 3.6 g/dL (3.9-5); Blood Urea Nitrogen 5 mg/dL (7-17); Calcium 8.3 mg/dL (8.4-10.2); Hemolysis Index 0
[2020-12-23 05:52] LABS: BUN/Creatinine Ratio 7
[2020-12-23] MEDS: HEPARIN 5,000 UNIT/1 ML VIAL SUB-Q SCH ×3 (08:40→22:27)
[2020-12-23] MEDS ORDERED: LIDOCAINE (1%) 10 MG/1 ML VIAL 20 ML MDV ONE (11:16)
[2020-12-23] MEDS ORDERED: SODIUM CHLORIDE 0.9% 250ML 250 ML ONE (11:16)
[2020-12-23] MEDS ORDERED: BUPIVACAINE/PF (0.5%) 5 MG/1 ML 30 ML VIAL INFILTRATI ONE ×2 (11:16→12:04)
--- NOTE | 2020-12-23 11:22 | Anesthesia Consultation ---
Anesthesia Consult and Med Hx Date of service: 12/23/20 - Airway Anesthetic Teeth Evaluation: Good ROM Head & Neck: Adequate Mental/Hyoid Distance: Adequate Mallampati Class: Class II Intubation Access Assessment: Good - Pulmonary Exam CTA: Yes - Cardiac Exam Cardiac Exam: RRR - Pre-Operative Health Status ASA Pre-Surgery Classification: ASA2 Proposed Anesthetic Plan: General
--- NOTE | 2020-12-23 11:23 | Anesthesia Day of Surgery ---
Anesthesia Day of Surgery - Day of Surgery Patient Examined: Yes Patient H&P Reviewed: Yes Patient is NPO: Yes
[2020-12-23] MEDS ORDERED: ROCURONIUM 50 MG/5 ML INJ IV ONE (11:27)
[2020-12-23] MEDS ORDERED: fentaNYL 100 MCG/2 ML INJ ONE (11:28)
[2020-12-23] MEDS ORDERED: MIDAZOLAM 2 MG/2 ML INJ ONE (11:28)
[2020-12-23] MEDS ORDERED: propofoL 200 MG/20 ML VIAL IV ONE (11:28)
[2020-12-23] MEDS ORDERED: ceFAZolin 1 GM VIAL ONE (11:56)
[2020-12-23] MEDS ORDERED: LIDOCAINE (1%) 10 MG/1 ML VIAL 20 ML MDV INFILTRATI ONE (12:05)
[2020-12-23] MEDS ORDERED: SODIUM CHLORIDE 0.9% 250 ML IVPB IV ONE (12:05)
[2020-12-23] MEDS ORDERED: SODIUM CHLORIDE 0.9% IRR 1,500 ML BOTTLE IR ONE (12:05)
[2020-12-23] MEDS ORDERED: LACTATED RINGERS 2,000 ML ONE (12:32)
[2020-12-23] MEDS ORDERED: dexAMETHasone 20 MG/5 ML VIAL ONE (12:33)
[2020-12-23] MEDS ORDERED: GLYCOPYRROLATE 0.4 MG/2 ML INJ ONE (12:33)
[2020-12-23] MEDS ORDERED: ONDANSETRON 4 MG/2 ML INJ ONE (12:33)
[2020-12-23] MEDS ORDERED: NEOSTIGMINE 10MG/10 ML INJ MDV ONE (12:33)
[2020-12-23] MEDS ORDERED: KETOROLAC 30 MG/1 ML INJ ONE (12:33)
--- NOTE | 2020-12-23 12:47 | Post Operative Note ---
Pre-op diagnosis: gallstone pancreatitis Post-op diagnosis: same Findings: 1. contracted gallbladder with stones 2. Positive cholangiogram - abrupt cutoff of contrast at distal CBD without filling of duodenum, normal filling of proximal and mid CBD, intrahepatic ducts Procedure: lap justin with IOC Anesthesia: GETA, local Surgeon: MEREDITH WALLS [employer] Light: JAVIER REGALADO Estimated blood loss: minimal Pathology: list (gallbladder) Specimen disposition: to lab Condition: stable Disposition: PACU (1. Results of IOC discussed with Dr. Duarte - timing of ERCP per GI team, 2. ok to dc from surgery standpoint after ERCP)
--- NOTE | 2020-12-23 12:56 | Post Anesthesia Evaluation ---
- Post Anesthesia Evaluation Patient Participated: Yes Airway Patent: Yes Stable Respiratory Function: Yes Nausea/Vomiting: No Temp > 96.8F: Yes Pain Manageable: Yes Adequeate Hydration: Yes Anesthesia Complications: No Block Receding Appropriately: Not Applicable Patient on Ventilator: Yes
[2020-12-23] MEDS: FAMOTIDINE 20 MG/2 ML INJ IV SCH ×2 (13:09→22:30)
[2020-12-23] MEDS ORDERED: HYDROmorphone 1 MG/1 ML INJ IV PRN (13:15)
[2020-12-23] MEDS: HYDROmorphone 1 MG/1 ML INJ IV PRN ×3 (13:15→22:22)
--- NOTE | 2020-12-23 13:52 | Fluoroscopy Report ---
FL cholangiogram operative Technique: Intraoperative fluoroscopic guidance was provided. Fluoroscopy time: 0.8 minutes. Fluoroscopy images: 1. Findings/Impression: Intraoperative fluoroscopic guidance for intraoperative cholangiogram. Please se e procedure report for further details. Signer Name: Lazaro Holbrook MD Signed: 12/23/2020 1:47 PM Workstation Name: [id number]
[2020-12-23] MEDS: FOLIC ACID 1 MG TAB PO SCH (14:10)
[2020-12-23] MEDS: THIAMINE 100 MG TAB PO SCH (14:10)
--- NOTE | 2020-12-23 14:58 | Operative Report ---
Operative Report Operative Report: Date: 12/23/20 Pre-op diagnosis: gallstone pancreatitis Post-op diagnosis: same Findings: 1. contracted gallbladder with stones 2. Positive cholangiogram - abrupt cutoff of contrast at distal CBD without filling of duodenum, normal filling of proximal and mid CBD, intrahepatic ducts Procedure: lap justin with IOC Anesthesia: CINDY local Surgeon: MEREDITH WALLS [employer] Portfolio Manager: JAVIER REGALADO Estimated blood loss: minimal Pathology: list (gallbladder) Specimen disposition: to lab Condition: stable Disposition: PACU (1. Results of IOC discussed with Dr. Duarte - timing of ERCP per GI team, 2. ok to dc from surgery standpoint after ERCP) HPI an indication: 35-year-old female who presented to ER with epigastric abdominal pain radiating to the chest and back. She was found to have gallstone pancreatitis on imaging and laboratory studies. The patient's labs improved with resuscitation. MRCP was negative for choledocholithiasis. It was recommended that the patient undergo cholecystectomy. All risks, benefits, alternatives to surgery were discussed with the patient and questions answered. Consent obtained for laparoscopic cholecystectomy with IOC. Procedure in detail: The patient was identified in the hospital bed and taken back to the operating room, placed on the operating room table in supine position. After anesthesia was induced, the abdomen was prepped and draped in usual sterile fashion and timeout was performed. Local anesthetic was infiltrated into all of the skin incision sites. Using an 11 blade, a supraumbilical incision was made through which a Veress needle was inserted. The position of the veress needle was confirmed with the saline drop test and the abdomen was then insufflated to 15 mmHg without incident. The veress needle was then removed and a 5 mm Optiview trocar placed through this incision. The abdomen was then inspected and there was no underlying injury to any of the abdominal contents. An additional 12 mm subxyphoid port, and 2, 5mm RUQ ports were then placed under direct visualization. The patient was then placed into reverse Trendelberg and tilted to the left. The gallbladder was visualized and appeared contracted. The gallbladder was retracted above the liver and the cystic duct and artery were very carefully skeletonized. These were the only 2 structures seen entering the gallbladder and the critical view was successfully obtained. 2 clips were placed on the proximal aspect of the cystic artery and 1 distally this was transected in between the clips using EndoShears. 1 clip was placed on the distalmost aspect of the cystic duct and a ductotomy was created just proximal to this using EndoShears. A cholangiogram catheter was inserted into the cystic duct and secured with a Jonhson clamp. Injectable saline was infiltrated into the duct without resistance or leakage around the clamp. We then performed a cholangiogram using Omnipaque dye. The cystic duct common bile duct and intrahepatic ducts immediately opacified with contrast. There was however a abrupt cut off of contrast at the distal aspect of the CBD with a meniscus sign and no filling of the duodenum consistent with cystic duct obstruction. At this point the cholangiogram catheter was removed and 3 clips were placed on the proximal aspect of the cystic duct. The duct was completely transected using EndoShears. The gallbladder was then dissected from the liver bed using electrocautery and hemostasis was carefully ensured along the way. The gallbladder was placed into an Endo Catch bag and removed from the abdomen via the 12mm port. The gallbladder fossa was then inspected and there was no identifiable bleeding or bile leakage. Hemostasis was ensured. The clips on the cystic duct and artery were visualized and intact. The patient was then pl aced into neutral position and Morison's pouch was irrigated and the irrigant returned clear. The 12 mm port fascia was closed with interrupted 0 Vicryl sutures using the Irvin Gonzalez device. The remaining ports were removed under direct visualization. Skin incisions were closed with 4-0 Monocryl subcuticular stitches and skin glue. All skin incisions were once again infiltrated with local anesthetic. At the end case all sponge, instrument, sharp counts were correct 2. The patient was awoken from anesthesia, extubated, and taken to PACU in stable condition.
[2020-12-23] MEDS: PIPERACIL/TAZOBACTA 4.5/NS 100 4.5 GM/100 ML VIAL IV SCH ×2 (15:02→22:30)
--- NOTE | 2020-12-23 15:14 | Progress Note ---
Assessment and Plan Assessment and plan: History of present illness: 35-year-old female patient with history of tobacco and possibly alcohol abuse presents to the emergency department with complaints of chest pain for 2 weeks. chest pain as "tightness," localized to the right side of her chest, episodic in nature, radiating underneath her right breast, lasting several minutes at a time, without identifiable exacerbating or relieving factors. Patient tested positive for COVID-19 on November 25. The chest pain did not start until after her other COVID-19 symptoms resolved. No other venous thromboembolism risk factors identified on history. In the emergency room patient is found to have gallstone pancreatitis. Patient abdominal ultrasound showed cholelithiasis. No sonographic evidence of acute cholecystitis. No biliary dilatation. Otherwise unremarkable abdominal ultrasound. Patient lipase is 815. AST 363 and ALT 185 alkaline phosphatase 134. Hospital course to date: 12/21/2020: Follow GI and Gen surgery recs. continue NPO and pain control. Follow MRCP results. 12/22/2020: MRCP shows gallstones, clear bile ducts. transaminases now downtrending. GSx plans on CCY. 12/23/2020: CCY tomorrow per Gsx. NPO midnight. 12/24/2020: CCY today. will follow up post op. (1) Pancreatitis Plan to address problem: RUQ abdominal pain radiating to right shoulder. Suspect gallstone pancreatitis US abd: gallstones, no biliary duct dilation. CLD IV fluid D5 half-normal saline at the rate of 100 cc/h. Pepcid 20 mg IV every 12 hours. Dilaudid 0.5 mg p.o. every 3 hours as needed. MRCP pending: cholelithiasis, normal bile ducts. please refer to radio report. GI following patient General surgery consulted: plan for cholecystectomy (2) Cholelithiasis Plan to address problem: patient denies prior knowledge of gall stones and denies any prior symptoms typical of biliary colic. US findings as above MRCP findings as above. Gen surgery consulted: plan for cholecystectomy prior to d/c (3) History of alcohol use Plan to address problem: States she only uses recreationally. Denies heavy abuse Counseled on alcohol cessation. thiamine 100 mg p.o. daily, folic acid 1 mg p.o. daily. (4) Transaminitis Plan to address problem: AST 363, ALT 185, ALP 134, inc on afternoon labs 12/21, now downtrending consistent with gallstone pancreatitis. MRCP findings as above (5) DVT prophylaxis Plan to address problem: DVT Ppx: Heparin 5000 units subcu every 8 hours for DVT prophylaxis. Diet: CLD Patient is a full code History Interval history: Denies any symptoms this AM. Hospitalist Physical - Physical exam Narrative exam: General appearance: Present: no acute distress, well-nourished - EENT Eyes: Present: PERRL ENT: hearing intact, clear oral mucosa - Neck Neck: Present: supple, normal ROM - Respiratory Respiratory effort: normal Respiratory: bilateral: CTA - Cardiovascular Heart Sounds: Present: S1 & S2. Absent: rub, click - Extremities Extremities: pulses symmetrical, No edema Peripheral Pulses: within normal limits - Abdominal General gastrointestinal: Present: soft, non-tender, non-distended, normal bowel sounds, other (Mild epigastric and right upper quadrant tenderness without guarding, rigidity or no rebound) Female genitourinary: Present: normal - Integumentary Integumentary: Present: clear, warm, dry - Musculoskeletal Musculoskeletal: gait normal, strength equal bilaterally - Psychiatric Psychiatric: appropriate mood/affect, intact judgment & insight - Neurologic Neurologic: CNII-XII intact, moves all extremities - Constitutional Vitals: Temp Pulse Resp BP Pulse Ox 97.6 F 62 18 145/91 100 12/23/20 14:00 12/23/20 14:00 12/23/20 14:00 12/23/20 14:00 12/23/20 14:00 General appearance: Present: no acute distress, well-nourished HEART Score - HEART Score Troponin: Troponin T < 0.010 ng/mL (0.00-0.029) 12/20/20 21:17 Results - Labs CBC & Chem 7: 12/22/20 04:31 12/23/20 04:04 Labs: Laboratory Last Values WBC 6.3 K/mm3 (4.5-11.0) 12/22/20 04:31 RBC 3.86 M/mm3 (3.65-5.03) 12/22/20 04:31 Hgb 12.0 gm/dl (10.1-14.3) 12/22/20 04:31 Hct 35.5 % (30.3-42.9) 12/22/20 04:31 MCV 92 fl (79-97) 12/22/20 04:31 MCH 31 pg (28-32) 12/22/20 04:31 MCHC 34 % (30-34) 12/22/20 04:31 RDW 13.6 % (13.2-15.2) 12/22/20 04:31 Plt Count 248 K/mm3 (140-440) 12/22/20 04:31 Lymph % (Auto) 42.7 % (13.4-35.0) H 12/22/20 04:31 [place] % (Auto) 4.4 % (0.0-7.3) 12/22/20 04:31 Eos % (Auto) 7.4 % (0.0-4.3) H 12/22/20 04:31 Baso % (Auto) 0.5 % (0.0-1.8) 12/22/20 04:31 Lymph # (Auto) 2.7 K/mm3 (1.2-5.4) 12/22/20 04:31 [place] # (Auto) 0.3 K/mm3 (0.0-0.8) 12/22/20 04:31 Eos # (Auto) 0.5 K/mm3 (0.0-0.4) H 12/22/20 04:31 Baso # (Auto) 0.0 K/mm3 (0.0-0.1) 12/22/20 04:31 Seg Neutrophils % 45.0 % (40.0-70.0) 12/22/20 04:31 Seg Neutrophils # 2.9 K/mm3 (1.8-7.7) 12/22/20 04:31 PT 14.1 Sec. (12.2-14.9) 12/22/20 04:31 INR 1.03 (0.87-1.13) 12/22/20 04:31 D-Dimer 1308.05 ng/mlDDU (0-234) H 12/20/20 21:17 Sodium 139 mmol/L (137-145) 12/23/20 04:04 Potassium 3.6 mmol/L (3.6-5.0) 12/23/20 04:04 Chloride 105.9 mmol/L (98-107) 12/23/20 04:04 Carbon Dioxide 24 mmol/L (22-30) 12/23/20 04:04 Anion Gap 13 mmol/L 12/23/20 04:04 BUN 5 mg/dL (7-17) L 12/23/20 04:04 Creatinine 0.7 mg/dL (0.6-1.2) 12/23/20 04:04 Estimated GFR > 60 ml/min 12/23/20 04:04 BUN/Creatinine Ratio 7 % 12/23/20 04:04 Glucose 86 mg/dL (65-100) 12/23/20 04:04 Calcium 8.3 mg/dL (8.4-10.2) L 12/23/20 04:04 Magnesium 1.90 mg/dL (1.7-2.3) 12/20/20 21:17 Total Bilirubin 0.30 mg/dL (0.1-1.2) 12/23/20 04:04 Direct Bilirubin 0.7 mg/dL (0-0.2) H 12/21/20 13:42 Indirect Bilirubin 0.6 mg/dL 12/21/20 13:42 AST 151 units/L (5-40) H 12/23/20 04:04 ALT 445 units/L (7-56) H 12/23/20 04:04 Alkaline Phosphatase 182 units/L (35-129) H 12/23/20 04:04 Troponin T < 0.010 ng/mL (0.00-0.029) 12/20/20 21:17 Total Protein 6.3 g/dL (6.3-8.2) 12/23/20 04:04 Albumin 3.6 g/dL (3.9-5) L 12/23/20 04:04 Albumin/Globulin Ratio 1.3 % 12/23/20 04:04 Lipase 30 units/L (13-60) 12/22/20 04:31 HCG, Qual Negative (Negative) 12/20/20 21:17 Acetaminophen 5.0 ug/mL (10.0-30.0) L 12/21/20 19:26 Hepatitis A IgM Ab Non-reactive (NonReactive) 12/21/20 13:42 Hep Bs Antigen Nonreactive (Negative) 12/21/20 13:42 Hep B Core IgM Ab Non-reactive (NonReactive) 12/21/20 13:42 Hepatitis C Antibody Non-reactive (NonReactive) 12/21/20 13:42 [place]/IV: Voiding Method Toilet Active Medications - Current Medications Current Medications: Generic Name Dose Route Start Last Admin Trade Name Freq PRN Reason Stop Dose Admin Acetaminophen 650 mg 12/21/20 02:30 12/22/20 11:46 Acetaminophen 325 Mg Tab PO 650 mg Q4H PRN Administration Pain MILD(1-3)/Fever >100.5/CHRISTINA Benzocaine/Menthol 1 each 12/21/20 18:35 Benzocaine/Menthol Lozenge MM Q2HR PRN Sore Throat Famotidine 20 mg 12/21/20 10:00 12/23/20 13:09 Famotidine 20 Mg/2 Ml Inj IV 20 mg BID BRANDON Administration Folic Acid 1 mg 12/21/20 10:00 12/23/20 14:10 Folic Acid 1 Mg Tab PO Not Given QDAY COUNTS INCLUDE 234 BEDS AT THE [facility] Heparin Sodium (Porcine) 5,000 unit 12/21/20 06:00 12/23/20 14:10 Heparin 5,000 Unit/1 Ml Vial SUB-Q Not Given Q8HR COUNTS INCLUDE 234 BEDS AT THE [facility] Hydromorphone HCl 0.5 mg 12/21/20 02:30 12/22/20 01:30 Hydromorphone 1 Mg/1 Ml Inj IV 0.5 mg Q3H PRN Administration Pain , Severe (7-10) Hydromorphone HCl 0.25 mg 12/23/20 13:15 12/23/20 13:25 Hydromorphone 1 Mg/1 Ml Inj IV 0.25 mg Q10MIN PRN Administration Pain, Moderate (4-6) Hydromorphone HCl 0.5 mg 12/23/20 13:15 Hydromorphone 1 Mg/1 Ml Inj IV Q10MIN PRN Pain , Severe (7-10) Dextrose/Sodium Chloride 1,000 mls @ 100 mls/hr 12/22/20 15:00 12/22/20 18:06 D5ns IV 100 mls/hr DIRECT BRANDON Administration Piperacillin Sod/Tazobactam Sod 4.5 gm in 100 mls @ 200 mls/hr 12/23/20 14:00 12/23/20 15:02 Zosyn/Ns 4.5gm/100ml IV 200 mls/hr Q8H BRANDON Administration Protocol Ondansetron HCl 4 mg 12/21/20 02:30 Ondansetron 4 Mg/2 Ml Inj IV Q8H PRN Nausea And Vomiting Oxycodone/Acetaminophen 1 tab 12/21/20 02:30 Oxycodone /Acetaminophen 5-325mg Tab PO Q6H PRN Pain, Moderate (4-6) Phenol 1 spray 12/21/20 18:35 Phenol 1.4% 177 Ml Bottle MM PRN PRN Sore Throat Sodium Chloride 10 ml 12/21/20 10:00 12/23/20 14:10 Sodium Chloride 0.9% 10 Ml Flush Syringe IV Not Given BID BRANDON Sodium Chloride 10 ml 12/21/20 02:30 Sodium Chloride 0.9% 10 Ml Flush Syringe IV PRN PRN LINE FLUSH Thiamine HCl 100 mg 12/21/20 10:00 12/23/20 14:10 Thiamine 100 Mg Tab PO Not Given QDAY BRANDON
[2020-12-23] MEDS: D5W/0.9% NACL 1,000 ML IV SCH (18:27)
[2020-12-24] MEDS: HYDROmorphone 1 MG/1 ML INJ IV PRN ×3 (02:51→12:17)
[2020-12-24 05:45] VITALS: BP 116/65
[2020-12-24] MEDS: PIPERACIL/TAZOBACTA 4.5/NS 100 4.5 GM/100 ML VIAL IV SCH (06:13)
[2020-12-24] MEDS: D5W/0.9% NACL 1,000 ML IV SCH (06:13)
[2020-12-24] MEDS: HEPARIN 5,000 UNIT/1 ML VIAL SUB-Q SCH (07:49)
[2020-12-24] MEDS: FAMOTIDINE 20 MG/2 ML INJ IV SCH (10:52)
[2020-12-24] MEDS: FOLIC ACID 1 MG TAB PO SCH (10:52)
[2020-12-24] MEDS: THIAMINE 100 MG TAB PO SCH (10:52)
--- NOTE | 2020-12-24 11:12 | Gastroenterology Progress Note ---
Assessment and Plan patient lacks insurance; she has evidence of biliary obstruction on IOC therefore needs ERCP; reviewed with patient, will see about timing of the procedure - Patient Problems (1) Choledocholithiasis Status: Acute (2) Cholelithiasis Status: Acute Qualifiers: Cholelithiasis location: gallbladder Cholecystitis presence: without cholecystitis Biliary obstruction: without biliary obstruction Qualified Code(s): K80.20 - Calculus of gallbladder without cholecystitis without obstruction (3) Pancreatitis Status: Acute Qualifiers: Chronicity: acute Pancreatitis type: unspecified pancreatitis type Acute pancreatitis complication: unspecified Qualified Code(s): K85.90 - Acute panc reatitis without necrosis or infection, unspecified (4) Transaminitis Status: Acute Subjective Date of service: 12/24/20 Principal diagnosis: Gallstone pancreatitis Interval history: Patient reports abdominal pain gradually improving after her surgery, she wants to go home Objective - Constitutional Vitals: Temp Pulse Resp BP Pulse Ox 98.6 F 56 L 16 116/65 98 12/24/20 05:07 12/24/20 05:07 12/24/20 08:16 12/24/20 05:07 12/24/20 05:07 General appearance: no acute distress - EENT Eyes: EOM intact - Respiratory Respiratory effort: normal - Gastrointestinal General gastrointestinal: Present: soft, tender - Labs CBC & Chem 7: 12/22/20 04:31 12/23/20 04:04
--- NOTE | 2020-12-24 12:32 | Discharge Summary ---
Providers - Providers Date of Admission: 12/21/20 02:11 Date of discharge: 12/24/20 Attending physician: SANDRA LAGUERRE MD 12/21/20 02:02 Consult to Physician [CONS] Stat Comment: KATE Mae spoke with Dr. Sarah @ [phone] Consulting Provider: KENNY SARAH Physician Instructions: Reason For Exam: pancreatitis - gallstone vs. alcohol 12/21/20 12:06 Consult to Physician [CONS] Routine Comment: Consulting Provider: MEREDITH WALLS Physician Instructions: Reason For Exam: gallstone pancreatitis Primary care physician: ADULT CAREGIVER Hospitalization Reason for admission: chest pain Condition: Stable Hospital course: History of present illness: 35-year-old female patient with history of tobacco and possibly alcohol abuse presents to the emergency department with complaints of chest pain for 2 weeks. chest pain as "tightness," localized to the right side of her chest, episodic in nature, radiating underneath her right breast, lasting several minutes at a time, without identifiable exacerbating or relieving factors. Patient tested positive for COVID-19 on November 25. The chest pain did not start until after her other COVID-19 symptoms resolved. No other venous thromboembolism risk factors identified on history. In the emergency room patient is found to have gallstone pancreatitis. Patient abdominal ultrasound showed cholelithiasis. No sonographic evidence of acute cholecystitis. No biliary dilatation. Otherwise unremarkable abdominal ultrasound. Patient lipase is 815. AST 363 and ALT 185 alkaline phosphatase 134. Hospital course to date: 12/21/2020: Follow GI and Gen surgery recs. continue NPO and pain control. Follow MRCP results. 12/22/2020: MRCP shows gallstones, clear bile ducts. transaminases now downtrending. GSx plans on CCY. 12/23/2020: CCY tomorrow per Gsx. NPO midnight. 12/24/2020: CCY today. will follow up post op. 12/25: Status post cholecystectomy. Cholangiogram demonstrates cutoff in bile duct. Will need ERCP. However, patient would like to go home. GI will set up ERCP in future for patient. Patient aware of GI plan and is agreeable.. D/c home with rx for percocet for pain. (1) Pancreatitis Plan to address problem: RUQ abdominal pain radiating to right shoulder. Suspect gallstone pancreatitis US abd: gallstones, no biliary duct dilation. CLD IV fluid D5 half-normal saline at the rate of 100 cc/h. Pepcid 20 mg IV every 12 hours. Dilaudid 0.5 mg p.o. every 3 hours as needed. MRCP pending: cholelithiasis, normal bile ducts. please refer to radio report. GI following patient General surgery consulted: plan for cholecystectomy (2) Cholelithiasis Plan to address problem: patient denies prior knowledge of gall stones and denies any prior symptoms typical of biliary colic. US findings as above MRCP findings as above. Gen surgery consulted: plan for cholecystectomy prior to d/c (3) History of alcohol use Plan to address problem: States she only uses recreationally. Denies heavy abuse Counseled on alcohol cessation. thiamine 100 mg p.o. daily, folic acid 1 mg p.o. daily. (4) Transaminitis Plan to address problem: AST 363, ALT 185, ALP 134, inc on afternoon labs 12/21, now downtrending consistent with gallstone pancreatitis. MRCP findings as above (5) DVT prophylaxis Plan to address problem: DVT Ppx: Heparin 5000 units subcu every 8 hours for DVT prophylaxis. Diet: CLD Patient is a full code Disposition: 01 HOME / SELF CARE / HOMELESS Final Discharge Diagnosis (Prints w/discharge instructions): Gallstone Pancreatitis. Time spent for discharge: 35 - Discharge Diagnoses (1) Choledocholithiasis Status: Acute (2) Cholelithiasis Status: Acute Qualifiers: Cholelithiasis location: gallbladder Cholecystitis presence: without cholecystitis Biliary obstruction: without biliary obstruction Qualified Code(s): K80.20 - Calculus of gallbladder without cholecystitis without obstruction (3) History of alcohol use Status: Acute (4) Pancreatitis Status: Acute Qualifiers: Chronicity: acute Pancreatitis type: unspecified pancreatitis type Acute pancreatitis complication: unspecified Qualified Code(s): K85.90 - Acute pancreatitis without necrosis or infection, unspecified (5) Transaminitis Status: Acute Core Measure Documentation - Palliative Care Palliative Care/ Comfort Measures: Not Applicable - Core Measures Any of the following diagnoses?: none Exam - Physical Exam Narrative exam: General appearance: Present: no acute distress, well-nourished - EENT Eyes: Present: PERRL ENT: hearing intact, clear oral mucosa - Neck Neck: Present: supple, normal ROM - Respiratory Respiratory effort: normal Respiratory: bilateral: CTA - Cardiovascular Heart Sounds: Present: S1 & S2. Absent: rub, click - Extremities Extremities: pulses symmetrical, No edema Peripheral Pulses: within normal limits - Abdominal General gastrointestinal: Present: soft, non-tender, non-distended, normal bowel sounds, other (Mild epigastric and right upper quadrant tenderness without guarding, rigidity or no rebound). clean incision site. Female genitourinary: Present: normal - Integumentary Integumentary: Present: clear, warm, dry - Musculoskeletal Musculoskeletal: gait normal, strength equal bilaterally - Psychiatric Psychiatric: appropriate mood/affect, intact judgment & insight - Neurologic Neurologic: CNII-XII intact, moves all extremities - Constitutional Vitals: Temp Pulse Resp BP Pulse Ox 98.6 F 56 L 16 116/65 98 12/24/20 05:07 12/24/20 05:07 12/24/20 08:16 12/24/20 05:07 12/24/20 05:07 Plan Activity: no restrictions Weight Bearing Status: Full Weight Bearing Diet: low fat, low cholesterol Follow up with: MEREDITH WALLS DO [Staff Physician] - 14 Days PRIMARY CARE, [Primary Care Provider] - 3-5 Days LIZ SALCEDO MD [Staff Physician] - 7 Days Prescriptions: Oxycodone HCl/Acetaminophen [Oxycodon-Acetaminophen 2.5-325] 1 each PO Q8HR PRN 3 Days #9 tablet PRN Reason: pain scale 4-10
== END 2020-12-24 16:30 | disposition home or self-care (01) | DRG 417 ==
LOC: ED 19:27 → 4A 12-21 02:11
PROVIDERS: ADMIT Hospitalist; ATTEND Internal Medicine
PROC: 0FT44ZZ Resection of Gallbladder, Percutaneous Endoscopic Approach (ICD-10-PCS; principal; 2020-12-23)
PROC: BF141ZZ Fluoroscopy of Gallbladder, Bile Ducts and Pancreatic Ducts using Low Osmolar Contrast (ICD-10-PCS; 2020-12-23)
DX: K80.70 Calculus of gallbladder and bile duct without cholecystitis without obstruction (principal); K85.10 Biliary acute pancreatitis without necrosis or infection; F17.200 Nicotine dependence, unspecified, uncomplicated; F10.10 Alcohol abuse, uncomplicated; Y90.9 Presence of alcohol in blood, level not specified; E80.6 Other disorders of bilirubin metabolism; Z71.41 Alcohol abuse counseling and surveillance of alcoholic
CPT/HCPCS: 36415; 71046; 71275; 74181; 74300; 76700; 80053; 80074; 80076; 80320; 83690; 83735; 84484; 84703; 85025; 85379; 85610; 88304; 93005; 99406; G0378; G0480; J0690; J1100; J1170; J1644; J1885; J2250; J2405; J2543; J2704; J2710; J3010; J7030; J7042; J7050; J7120; Q9967

== ENCOUNTER 2020-12-26 13:19 | Inpatient (IN) | payer SELFPAY ==
[2020-12-26] MEDS ORDERED: KETOROLAC 30 MG/1 ML INJ IV ONE (15:29)
--- NOTE | 2020-12-26 15:34 | Emergency Department Report ---
ED Abdominal Pain HPI - General Chief Complaint: Chest Pain Stated Complaint: GALLBLADDER REMOVAL/CP Time Seen by Provider: 12/26/20 15:22 Source: patient Mode of arrival: Ambulatory Limitations: No Limitations - History of Present Illness Initial Comments: Patient presents with abdominal pain and chest pain. She had been in the hospital last week due to biliary disease. She ultimately was found to have gallstone pancreatitis. She had a cholecystectomy completed. There was a cut off later found on MRCP and it was determined that the patient needed an ERCP. That could not be completed and the patient did not want to stay in the hospital for the 3-day duration while waiting. Patient had to go home to take care of her children. She states that she was told to come back on Thursday so they could do the ERCP on . She is still having pain in the epigastric area that radiates up into her chest. It is sharp and stabbing. The pain does not migrate. She has nausea without vomiting. There is no hematemesis or coffee- ground emesis. She has had no melenic stool. She was taking Percocet for pain. - Related Data Previous Rx's Medication Instructions Recorded Last Taken Type Oxycodone HCl/Acetaminophen 1 each PO Q8HR PRN 3 Days #9 tablet 12/24/20 Unknown Rx [Oxycodon-Acetaminophen 2.5-325] Allergies Allergy/AdvReac Type Severity Reaction Status Date / Time No Known Allergies Allergy Verified 12/21/20 02:36 ED Review of Systems ROS: Stated complaint: GALLBLADDER REMOVAL/CP Other details as noted in HPI Comment: All other systems reviewed and negative Constitutional: denies: fever Eyes: denies: eye pain ENT: denies: throat pain Respiratory: denies: cough Cardiovascular: as per HPI Endocrine: denies: unexplained weight loss Gastrointestinal: as per HPI Genitourinary: denies: dysuria Musculoskeletal: denies: back pain Skin: denies: rash Neurological: denies: headache Hematological/Lymphatic: denies: easy bruising ED Past Medical Hx - Past Medical History Previous Medical History?: No - Surgical History Past Surgical History?: Yes Hx Cholecystectomy: Yes Additional Surgical History: TL - Family History Family history: no significant - Social History Smoking Status: Current Some Day Smoker - Medications Home Medications: Home Medications Medication Instructions Recorded Confirmed Last Taken Type Oxycodone HCl/Acetaminophen 1 each PO Q8HR PRN 3 Days #9 tablet 12/24/20 Unknown Rx [Oxycodon-Acetaminophen 2.5-325] ED Physical Exam - General Limitations: No Limitations General appearance: alert, in distress (Mild pain) - Head Head exam: Present: atraumatic, normocephalic, normal inspection - Eye Eye exam: Present: normal appearance, EOMI. Absent: scleral icterus - ENT ENT exam: Present: normal exam, normal orophraynx, mucous membranes moist - Neck Neck exam: Present: full ROM. Absent: meningismus - Respiratory Respiratory exam: Present: normal lung sounds bilaterally. Absent: respiratory distress - Cardiovascular Cardiovascular Exam: Present: regular rate, normal rhythm - GI/Abdominal GI/Abdominal exam: Present: soft, tenderness (Epigastric and right upper quadrant). Absent: guarding, rebound - Extremities Exam Extremities exam: Present: normal capillary refill. Absent: tenderness - Back Exam Back exam: Absent: CVA tenderness (R), CVA tenderness (L) - Neurological Exam Neurological exam: Present: alert, oriented X3, CN II-XII intact, reflexes normal. Absent: motor sensory deficit - Psychiatric Psychiatric exam: Present: normal affect, normal mood - Skin Skin exam: Present: warm, dry ED Course Vital Signs 12/26/20 12/26/20 14:40 16:26 Temperature 98.1 F Pulse Rate 91 H Respiratory 18 18 Rate Blood Pressure 118/87 O2 Sat by Pulse 100 Oximetry - Reevaluation(s) Reevaluation #1: 12/26/20 15:31 IV and labs are ordered. Old records reviewed. Reevaluation #2: 12/26/20 16:45 Labs have been noted. Case was discussed with Dr. Mustafa, the hospitalist. He deferred the admission to gastroenterology. GI has been paged. Reevaluation #3: 12/26/20 16:56 Case was discussed with Dr. Duarte He plans on endoscopy in the morning. Dr. Mustafa was notified. ED Medical Decision Making - Lab Data Result diagrams: 12/26/20 15:35 12/26/20 15:35 - Medical Decision Making Patient present with abdominal pain and chest pain. She was found to have evidence of biliary obstruction with a known impacted stone. Patient does not appear to be septic or toxic. She does not have evidence of cholangitis. Lipase is elevated and this would be consistent with acute pancreatitis in addition. Case was discussed with the hospitalist and GI. They agree to admission with planned endoscopy in the morning. Critical Care Time: No Critical care attestation.: If time is entered above; I have spent that time in minutes in the direct care of this critically ill patient, excluding procedure time. ED Disposition Clinical Impression: Acute epigastric pain, Pancreatitis due to common bile duct stone, Transaminitis Disposition: 09 ADMITTED INPATIENT Is pt being admited?: Yes Does the pt Need Aspirin: No Condition: Stable
[2020-12-26 16:25] LABS: Alanine Aminotransferase 286 units/L (7-56); Albumin 4.2 g/dL (3.9-5); Blood Urea Nitrogen 6 mg/dL (7-17); Calcium 9.9 mg/dL (8.4-10.2); Hemolysis Index 10
[2020-12-26 16:39] LABS: BUN/Creatinine Ratio 10
[2020-12-26 16:41] LABS: Hematocrit 35.4 % (30.3-42.9); Hemoglobin 12.3 gm/dl (10.1-14.3); Mean Corpuscular HGB Conc 35 % (30-34); Mean Corpuscular Volume 90 fl (79-97); Platelet Count 316 K/mm3 (140-440); Red Blood Count 3.92 M/mm3 (3.65-5.03); Red Cell Distribution Width 13.7 % (13.2-15.2)
--- NOTE | 2020-12-26 16:58 | History and Physical Report ---
History of Present Illness Chief complaint: My stomach hurts History of present illness: 35 YO Female with Obesity, Chronic ETOH Pancreatitis, ETOH Dependence, Transaminitis, Choledocholithiasis, Nicotine Dependence presents to ED for evaluation. Patient reports "my stomach hurts". Patient states that she has experienced abdominal pain over the past 2 days since her discharge from the hospital. Patient states the pain is 4/10, intermittent, epigastric, radiates up into her chest, sharp, stabbing in nature. Patient transported [facility] via private vehicle for further care and evaluation of the aforementioned symptoms. The patient was seen and evaluated in the emergency department. All lab and imaging studies reviewed. Patient found to have epigastric pain on exam. Patient using her finger to localize the epigastric area and not the chest area at the site of her pain. Patient denies fever, chills, palpitation or productive cough, skin rash, recent ill contacts, known exposure to COVID-19. Prior admission on 12/21/2020 reviewed. All medication listed at time of admission has been reconciled. GI team consulted in ED. Patient pending endoscopy as per GI team. Past History Past Medical History: other (See HPI) Past Surgical History: cholecystectomy Social history: smoking, alcohol abuse Family history: diabetes, hypertension Medications and Allergies Allergies Allergy/AdvReac Type Severity Reaction Status Date / Time No Known Allergies Allergy Verified 12/21/20 02:36 Home Medications Medication Instructions Recorded Confirmed Last Taken Type Oxycodone HCl/Acetaminophen 1 each PO Q8HR PRN 3 Days #9 tablet 12/24/20 Unknown Rx [Oxycodon-Acetaminophen 2.5-325] Review of Systems Constitutional: no weight loss, no weight gain, no fever, no chills Ears, nose, mouth and throat: no ear pain, no ear discharge, no tinnitis, no nose pain, no nasal discharge Breasts: no change in shape, no swelling, no mass Cardiovascular: no chest pain, no orthopnea, no palpitations, no edema Respiratory: no cough, no cough with sputum, no hemoptysis, no shortness of breath Gastrointestinal: abdominal pain, no vomiting, no diarrhea, no change in bowel habits Genitourinary Female: no pelvic pain, no dysuria, no urinary frequency, no urgency Rectal: no pain, no incontinence, no bleeding Musculoskeletal: no neck stiffness, no shooting arm pain, no low back pain, no leg numbness/tingling Integumentary: no rash, no pruritis, no redness, no sores, no wounds, no jaundice Neurological: no head injury, no transient paralysis, no paralysis, no parathesias, no numbness, no tingling, no seizures Psychiatric: no anxiety, no memory loss, no change in sleep habits, no insomnia, no hypersomnia, no change in appetite, no change in libido Endocrine: no cold intolerance, no heat intolerance, no excessive thirst, no polydipsia, no polyuria, no flushing Hematologic/Lymphatic: no easy bruising, no easy bleeding, no lymphadenopathy Allergic/Immunologic: no urticaria, no allergic rhinitis Exam - Constitutional Vitals: Temp Pulse Resp BP Pulse Ox 98.1 F 91 H 18 118/87 100 12/26/20 14:40 12/26/20 14:40 12/26/20 16:26 12/26/20 14:40 12/26/20 14:40 General appearance: Present: mild distress, obese - EENT Eyes: Present: PERRL ENT: hearing intact, clear oral mucosa - Neck Neck: Present: supple, normal ROM - Respiratory Respiratory effort: normal Respiratory: bilateral: CTA - Cardiovascular Heart Sounds: Present: S1 & S2. Absent: rub, click - Extremities Extremities: pulses symmetrical, No edema Peripheral Pulses: within normal limits - Abdominal General gastrointestinal: Present: soft, non-tender, non-distended, normal bowel sounds Female genitourinary: Present: normal - Integumentary Integumentary: Present: clear, warm, dry - Musculoskeletal Musculoskeletal: gait normal, strength equal bilaterally - Psychiatric Psychiatric: appropriate mood/affect, intact judgment & insight - Neurologic Neurologic: CNII-XII intact, moves all extremities Results - Labs CBC & Chem 7: 12/26/20 15:35 12/26/20 15:35 Labs: Abnormal lab results 12/26/20 12/26/20 Range/Units 15:35 15:35 MCHC 35 H (30-34) % BUN 6 L (7-17) mg/dL Glucose 106 H (65-100) mg/dL AST 276 H (5-40) units/L ALT 286 H (7-56) units/L Alkaline Phosphatase 265 H (35-129) units/L Lipase 742 H (13-60) units/L Assessment and Plan - Patient Problems (1) Pancreatitis Current Visit: No Status: Acute Qualifiers: Chronicity: acute Pancreatitis type: unspecified pancreatitis type Acute pancreatitis complication: unspecified Qualified Code(s): K85.90 - Acute pancreatitis without necrosis or infection, unspecified Plan to address problem: Lipase level, GI team consulted for endoscopic testing in a.m., bowel rest, IV fluid resuscitation therapy, pain control, supportive care. (2) Choledocholithiasis Current Visit: No Status: Acute Plan to address problem: Liver function test, supportive care. GI team consulted. (3) Transaminitis Current Visit: No Status: Acute Plan to address problem: LFTs, endoscopy pending in a.m. Repeat LFT in a.m. (4) Nicotine dependence Current Visit: Yes Status: Acute Qualifiers: Nicotine product type: cigarettes Substance use status: in withdrawal Qualified Code(s): F17.213 - Nicotine dependence, cigarettes, with withdrawal Plan to address problem: Supportive care, smoking cessation counseling, behavior change counseling, +15 minutes. (5) DVT prophylaxis Current Visit: No Status: Acute Plan to address problem: SCD to bilateral lower extremities while in bed, patient is ambulatory
[2020-12-26] MEDS ORDERED: ALBUTEROL 2.5 MG/3 ML NEBU IH PRN (17:55)
[2020-12-26] MEDS ORDERED: ONDANSETRON 4 MG/2 ML INJ IV PRN (17:55)
[2020-12-26] MEDS ORDERED: HYDROmorphone 1 MG/1 ML INJ IV PRN (17:55)
[2020-12-26] MEDS ORDERED: ACETAMINOPHEN 325 MG TAB PO PRN (17:55)
[2020-12-26] MEDS: SODIUM CHLORIDE 0.9% 1000 ML 1,000 ML IV SCH (23:11)
[2020-12-27] MEDS: oxyCODONE /ACETAMINOPHEN 5-325MG TAB PO PRN ×2 (00:08→21:27)
[2020-12-27 06:30] LABS: Basophils % (Auto) 0.4 % (0.0-1.8); Eosinophils # (Auto) 0.5 K/mm3 (0.0-0.4); Hematocrit 32.3 % (30.3-42.9); Hemoglobin 10.9 gm/dl (10.1-14.3); Lymphocytes # (Auto) 3.1 K/mm3 (1.2-5.4); Lymphocytes % (Auto) 34.1 % (13.4-35.0); Mean Corpuscular HGB Conc 34 % (30-34); Mean Corpuscular Volume 90 fl (79-97); Monocytes # (Auto) 0.5 K/mm3 (0.0-0.8); Monocytes % (Auto) 5.1 % (0.0-7.3); Platelet Count 285 K/mm3 (140-440); Red Blood Count 3.61 M/mm3 (3.65-5.03); Red Cell Distribution Width 13.6 % (13.2-15.2)
[2020-12-27 07:09] LABS: Alanine Aminotransferase 227 units/L (7-56); Albumin 3.6 g/dL (3.9-5); Blood Urea Nitrogen 7 mg/dL (7-17); Calcium 8.9 mg/dL (8.4-10.2); Hemolysis Index 4
[2020-12-27] MEDS ORDERED: SODIUM CHLORIDE 0.9% 100 ML ONE (07:24)
[2020-12-27 07:27] LABS: BUN/Creatinine Ratio 12
[2020-12-27] MEDS ORDERED: SODIUM CHLORIDE 0.9% 1000 ML 1,000 ML IV SCH (08:00)
[2020-12-27] MEDS: SODIUM CHLORIDE 0.9% 1000 ML 1,000 ML IV SCH (08:56)
[2020-12-27] MEDS ORDERED: GLUCAGON (HUMAN RECOMBINANT) 1 MG/ML INJ ONE (11:21)
--- NOTE | 2020-12-27 11:48 | Anesthesia Consultation ---
Anesthesia Consult and Med Hx Date of service: 12/27/20 - Airway Anesthetic Teeth Evaluation: Good ROM Head & Neck: Adequate Mental/Hyoid Distance: Adequate Mallampati Class: Class II Intubation Access Assessment: Probably Good - Pre-Operative Health Status ASA Pre-Surgery Classification: ASA2 Proposed Anesthetic Plan: MAC - Pulmonary Hx Smoking: Yes - Gastrointestinal Hx Gastroesophageal Reflux Disease: Yes - Endocrine Hx Liver Disease: Yes (gallstone pancreatitis) - Other Systems Hx Alcohol Use: Yes Hx Obesity: Yes
--- NOTE | 2020-12-27 11:48 | Anesthesia Day of Surgery ---
Anesthesia Day of Surgery - Day of Surgery Patient Examined: Yes Patient H&P Reviewed: Yes Patient is NPO: Yes
--- NOTE | 2020-12-27 12:04 | Gastroenterology Consultation ---
History of Present Illness - Reason for Consult Consult date: 12/27/20 choledocholithiasis Requesting physician: DEBORAH GAUTHIER - History of Present Illness This is a 35 yo female with recent admission for gallstone pancreatitis with elevated LFTs and lipase. MRCP was negative for biliary ductal obstruction. She went for CCY with IOC. IOC showed abrupt cutoff of contrast at distal CBD without filling of duodenum. She was discharged with plans for follow up for ou tpatient ERCP. She came to the ED for abdominal pain and for ERCP yesterday. Feels somewhat better today. She also has no medical insurance and difficult to follow up outpatient. medication list reviewed. Past History Past Medical History: other (See HPI) Past Surgical History: cholecystectomy Social history: smoking, alcohol abuse Family history: diabetes, hypertension Medications and Allergies Allergies Allergy/AdvReac Type Severity Reaction Status Date / Time No Known Allergies Allergy Verified 12/21/20 02:36 Home Medications Medication Instructions Recorded Confirmed Last Taken Type Oxycodone HCl/Acetaminophen 1 each PO Q8HR PRN 3 Days #9 tablet 12/24/20 Unknown Rx [Oxycodon-Acetaminophen 2.5-325] Active Meds: Active Medications Acetaminophen (Acetaminophen 325 Mg Tab) 650 mg PO Q4H PRN PRN Reason: Pain MILD(1-3)/Fever >100.5/CHRISTINA Albuterol (Albuterol 2.5 Mg/3 Ml Nebu) 2.5 mg IH Q4HRT PRN PRN Reason: Shortness Of Breath Hydromorphone HCl (Hydromorphone 1 Mg/1 Ml Inj) 0.25 mg IV Q6H PRN PRN Reason: Pain, Moderate (4-6) Sodium Chloride (Nacl 0.9% 1000 Ml) 1,000 mls @ 125 mls/hr IV DIRECT BRANDON Last Admin: 12/27/20 08:56 Dose: 125 mls/hr Documented by: Sodium Chloride (Nacl 0.9% 1000 Ml) 1,000 mls @ 50 mls/hr IV DIRECT BRANDON Stop: 12/27/20 21:00 Ondansetron HCl (Ondansetron 4 Mg/2 Ml Inj) 4 mg IV Q8H PRN PRN Reason: Nausea And Vomiting Oxycodone/Acetaminophen (Oxycodone /Acetaminophen 5-325mg Tab) 1 tab PO Q8H PRN PRN Reason: Pain, Moderate (4-6) Last Admin: 12/27/20 00:08 Dose: 1 tab Documented by: Sodium Chloride (Sodium Chloride 0.9% 10 Ml Flush Syringe) 10 ml IV BID BRANDON Last Admin: 12/26/20 22:13 Dose: 10 ml Documented by: Sodium Chloride (Sodium Chloride 0.9% 10 Ml Flush Syringe) 10 ml IV PRN PRN PRN Reason: LINE FLUSH Review of Systems - Review of Systems All systems: negative Constitutional: no weight loss, no fever, no chills Cardiovascular: no edema, no palpitations Gastrointestinal: abdominal pain, no nausea, no vomiting, no diarrhea, no change in bowel habits, no hematemesis, no coffee ground emesis, no BRBPR, no hematochezia Musculoskeletal: no gait dysfunction Neurological: no paralysis, no weakness Psychiatric: no anxiety Endocrine: no cold intolerance Hematologic/Lymphatic: no easy bruising Allergic/Immunologic: no wheezing Exam - Constitutional Vital Signs: Temp Pulse Resp BP Pulse Ox 98.5 F 76 16 127/76 99 12/27/20 11:36 12/27/20 11:36 12/27/20 11:36 12/27/20 11:36 12/27/20 11:36 General appearance: no acute distress - EENT Eyes: EOM intact ENT: hearing intact - Neck Neck: supple - Respiratory Respiratory effort: normal - Cardiovascular Rhythm: regular Heart Sounds: Present: S1 & S2 - Gastrointestinal General gastrointestinal: Present: soft, non-tender, non-distended - Integumentary Integumentary: Present: clear, warm - Neurologic Neurological: alert and oriented x3 - Labs CBC & Chem 7: 12/27/20 04:38 12/27/20 04:38 Lab Results: Laboratory Results - last 24 hr 12/26/20 12/26/20 12/27/20 15:35 15:35 04:38 WBC 9.6 9.0 RBC 3.92 3.61 L Hgb 12.3 10.9 Hct 35.4 32.3 MCV 90 90 MCH 31 30 MCHC 35 H 34 RDW 13.7 13.6 Plt Count 316 285 Lymph % (Auto) 34.1 Avery % (Auto) 5.1 Eos % (Auto) 6.0 H Baso % (Auto) 0.4 Lymph # (Auto) 3.1 Avery # (Auto) 0.5 Eos # (Auto) 0.5 H Baso # (Auto) 0.0 Seg Neutrophils % 54.4 Seg Neutrophils # 4.9 Sodium 139 Potassium 3.8 Chloride 102.1 Carbon Dioxide 25 Anion Gap 16 BUN 6 L Creatinine 0.6 Estimated GFR > 60 BUN/Creatinine Ratio 10 Glucose 106 H Calcium 9.9 D Total Bilirubin 0.30 AST 276 H ALT 286 H Alkaline Phosphatase 265 H Total Protein 7.4 Albumin 4.2 Albumin/Globulin Ratio 1.3 Lipase 742 H 12/27/20 04:38 WBC RBC Hgb Hct MCV MCH MCHC RDW Plt Count Lymph % (Auto) Avery % (Auto) Eos % (Auto) Baso % (Auto) Lymph # (Auto) Avery # (Auto) Eos # (Auto) Baso # (Auto) Seg Neutrophils % Seg Neutrophils # Sodium 142 Potassium 3.5 L Chloride 105.7 Carbon Dioxide 23 Anion Gap 17 BUN 7 Creatinine 0.6 Estimated GFR > 60 BUN/Creatinine Ratio 12 Glucose 87 Calcium 8.9 Total Bilirubin 0.30 AST 110 H ALT 227 H Alkaline Phosphatase 192 H Total Protein 6.3 Albumin 3.6 L Albumin/Globulin Ratio 1.3 Lipase Assessment and Plan This is a 35 yo female with recent admission for gallstone pancreatitis with elevated LFTs and lipase. MRCP was negative for biliary ductal obstruction. She went for CCY with IOC. IOC showed abrupt cutoff of contrast at distal CBD without filling of duodenum. # Choledocholithiasis # Elevated liver enzymes # Pancreatitis - recent admission last week for gallstone pancreatitis s/p CCY with IOC, which was positive. - this admission. LFTs elevated but trending down today. - lipase 700s. - HD stable. Rec - will plan for ERCP. discussed risks of potential complications with patient - keep NPO - further recs pending ERCP - hold anticoagulation. - Patient Problems (1) Pancreatitis due to common bile duct stone Current Visit: Yes Status: Acute (2) Transaminitis Current Visit: Yes Status: Acute (3) Choledocholithiasis Current Visit: No Status: Acute
[2020-12-27] MEDS ORDERED: HYDROmorphone 1 MG/1 ML INJ ONE (12:24)
[2020-12-27] MEDS ORDERED: MIDAZOLAM 2 MG/2 ML INJ ONE (12:25)
[2020-12-27] MEDS ORDERED: propofoL 200 MG/20 ML VIAL IV ONE (12:29)
[2020-12-27] MEDS ORDERED: ONDANSETRON 4 MG/2 ML INJ ONE (12:46)
--- NOTE | 2020-12-27 12:51 | Post Operative Note ---
Pre-op diagnosis: Abnl Cholangiogram, Abnl LFT Post-op diagnosis: other (Biliary Sludge) Findings: 1. Nml ampulla 2. PD not injected/cannulated 3. CBD cannulated with Fusiontome/0.035 guidewire - CBD with distal filling defect - Medium sphincterotomy - Biliary balloon 12mm through CHD/CBD with removal of sludge 4. Clips in RUQ without bile leak c/w CCY Procedure: ERCP with biliary sphincterotomy and balloon sweep of bile ducts Anesthesia: MAC Surgeon: KENNY SARAH Estimated blood loss: minimal Pathology: none Specimen disposition: other (N/A) Condition: stable Disposition: floor (Recs: 1. Regular diet. 2. OK to d/c home off abx since no retained stone, and WBC WNL. 3. Patient to f/u in our office to recheck the liver enzymes. 4. Will sign off; please call if needed.)
--- NOTE | 2020-12-27 13:15 | Operative Report ---
DATE OF SURGERY: 12/27/2020 PROCEDURE PERFORMED: Endoscopic retrograde cholangiopancreatography with biliary sphincterotomy and balloon sweeping of the common bile duct. PREOPERATIVE DIAGNOSES: Abnormal liver enzymes and abnormal cholangiogram. POSTOPERATIVE DIAGNOSES: Biliary sludge, prior cholecystectomy. ENDOSCOPIST: Dionte Lugo MD INSTRUMENT: The Olympus video endoscope. MEDICATIONS: MAC anesthesia by Anesthesia services. COMPLICATIONS: No apparent complications. ESTIMATED BLOOD LOSS: Minimal. SPECIMENS: None. IMPLANTS: None. ASSISTANTS: None. CONDITION AT COMPLETION: Stable. DESCRIPTION OF PROCEDURE: The patient was informed of the risks and benefits of the procedure. She signed the informed consent to proceed. She was placed in the prone position. The above sedative medications were given. Her vital signs remained stable throughout the procedure. The instrument was advanced from the mouth to the second portion of the duodenum under direct visualization. At that point, the bowel was insufflated. The ampulla was normal in shape and size. The common bile duct was cannulated using a Fusion sphincterotome and a 0.035 guidewire. The common bile duct was normal in caliber with a small distal filling defect. A medium sphincterotomy was performed and a biliary balloon, 12 mm, was swept twice through the common hepatic and common bile duct with removal of biliary sludge and a normal cholangiogram at the end of the procedure. The procedure was then terminated. FINDINGS: 1. Normal appearing ampulla. 2. Pancreatic duct was not cannulated nor injected during this procedure. 3. Common bile duct cannulated using a Fusion sphincterotome and a 0.035 guidewire. A. The common bile duct showed a distal filling defect, but was not markedly dilated. B. A medium sized sphincterotomy was performed. C. Biliary balloon, 12 mm, swept twice through the common hepatic and common bile duct with removal of sludge and a normal cholangiogram at the end of the procedure. 4. Clips present in the right upper quadrant without obvious bile leak, consistent with a prior cholecystectomy. RECOMMENDATIONS: 1. Regular diet. 2. Okay to discharge the patient home when stable, off antibiotics, since there was no retained gallstone and the white blood cell count is normal. 3. The patient will follow up in our office to recheck her liver enzymes. 4. We will sign off, please call if needed. TID: [id number] RECEIPT: [id number] BUCK/ADONIS
--- NOTE | 2020-12-27 14:49 | Progress Note ---
Assessment and Plan Assessment and plan: Patient is a 35-year-old female history of gallstone pancreatitis status post laparoscopic cholecystectomy 12/23. Reports with 2 days of chest pain, later to be described as epigastric in location. With elevated lipase and downtrending liver enzymes from previous admission. Admitted for probable gallstone pancreatitis status post ERCP. #Pancreatitis -Lipase 742, epigastric pain -Status post ERCP by GI -Continue IV fluids -NPO for now, will advance diet as patient tolerates -PRN pain medications -GI following, appreciate assistance #Choledocholithiasis -Management per GI #Elevated liver enzymes -likely secondary to retained gallstones -downtrending from 12/24 (AST 110, ALT 227) -Repeat CMP in a.m. Disposition Plan: Home Total Time Spent with Patient (Minutes): 30 minutes History Interval history: No acute events overnight. Patient still experiencing mild epigastric soreness on palpation. Denies nausea, vomiting, and diarrhea. Hospitalist Physical - Physical exam Narrative exam: GENERAL: Well-developed well-nourished. Lying in bed in no acute distress. HEENT: No scleral icterus noted. CHEST/LUNGS: CTAB on room air HEART/CARDIOVASCULAR: RRR. No murmur, rubs or gallops appreciated. ABDOMEN: +BS. +epigastric tenderness. Non-distended. SKIN: No rashes noted. NEURO: No focal motor deficit. Follows all commands. EXTREMITIES: No cyanosis, cubbing or edema. PSYCH: Cooperative. - Constitutional Vitals: Temp Pulse Resp BP Pulse Ox 98.0 F 68 15 115/76 100 12/27/20 12:54 12/27/20 13:25 12/27/20 13:25 12/27/20 13:25 12/27/20 13:25 General appearance: Present: mild distress, obese Results - Labs CBC & Chem 7: 12/27/20 04:38 12/27/20 04:38 Labs: Laboratory Last Values WBC 9.0 K/mm3 (4.5-11.0) 12/27/20 04:38 RBC 3.61 M/mm3 (3.65-5.03) L 12/27/20 04:38 Hgb 10.9 gm/dl (10.1-14.3) 12/27/20 04:38 Hct 32.3 % (30.3-42.9) 12/27/20 04:38 MCV 90 fl (79-97) 12/27/20 04:38 MCH 30 pg (28-32) 12/27/20 04:38 MCHC 34 % (30-34) 12/27/20 04:38 RDW 13.6 % (13.2-15.2) 12/27/20 04:38 Plt Count 285 K/mm3 (140-440) 12/27/20 04:38 Lymph % (Auto) 34.1 % (13.4-35.0) 12/27/20 04:38 [place] % (Auto) 5.1 % (0.0-7.3) 12/27/20 04:38 Eos % (Auto) 6.0 % (0.0-4.3) H 12/27/20 04:38 Baso % (Auto) 0.4 % (0.0-1.8) 12/27/20 04:38 Lymph # (Auto) 3.1 K/mm3 (1.2-5.4) 12/27/20 04:38 [place] # (Auto) 0.5 K/mm3 (0.0-0.8) 12/27/20 04:38 Eos # (Auto) 0.5 K/mm3 (0.0-0.4) H 12/27/20 04:38 Baso # (Auto) 0.0 K/mm3 (0.0-0.1) 12/27/20 04:38 Seg Neutrophils % 54.4 % (40.0-70.0) 12/27/20 04:38 Seg Neutrophils # 4.9 K/mm3 (1.8-7.7) 12/27/20 04:38 Sodium 142 mmol/L (137-145) 12/27/20 04:38 Potassium 3.5 mmol/L (3.6-5.0) L 12/27/20 04:38 Chloride 105.7 mmol/L (98-107) 12/27/20 04:38 Carbon Dioxide 23 mmol/L (22-30) 12/27/20 04:38 Anion Gap 17 mmol/L 12/27/20 04:38 BUN 7 mg/dL (7-17) 12/27/20 04:38 Creatinine 0.6 mg/dL (0.6-1.2) 12/27/20 04:38 Estimated GFR > 60 ml/min 12/27/20 04:38 BUN/Creatinine Ratio 12 % 12/27/20 04:38 Glucose 87 mg/dL (65-100) 12/27/20 04:38 Calcium 8.9 mg/dL (8.4-10.2) 12/27/20 04:38 Total Bilirubin 0.30 mg/dL (0.1-1.2) 12/27/20 04:38 AST 110 units/L (5-40) H 12/27/20 04:38 ALT 227 units/L (7-56) H 12/27/20 04:38 Alkaline Phosphatase 192 units/L (35-129) H 12/27/20 04:38 Total Protein 6.3 g/dL (6.3-8.2) 12/27/20 04:38 Albumin 3.6 g/dL (3.9-5) L 12/27/20 04:38 Albumin/Globulin Ratio 1.3 % 12/27/20 04:38 Lipase 742 units/L (13-60) H 12/26/20 15:35 [place]/IV: Voiding Method Toilet Active Medications - Current Medications Current Medications: Generic Name Dose Route Start Last Admin Trade Name Freq PRN Reason Stop Dose Admin Acetaminophen 650 mg 12/26/20 17:55 Acetaminophen 325 Mg Tab PO Q4H PRN Pain MILD(1-3)/Fever >100.5/CHRISTINA Albuterol 2.5 mg 12/26/20 17:55 Albuterol 2.5 Mg/3 Ml Nebu IH Q4HRT PRN Shortness Of Breath Hydromorphone HCl 0.25 mg 12/26/20 17:55 Hydromorphone 1 Mg/1 Ml Inj IV Q6H PRN Pain, Moderate (4-6) Sodium Chloride 1,000 mls @ 125 mls/hr 12/26/20 18:00 12/27/20 08:56 Nacl 0.9% 1000 Ml IV 125 mls/hr DIRECT BRANDON Administration Sodium Chloride 1,000 mls @ 50 mls/hr 12/27/20 08:00 Nacl 0.9% 1000 Ml IV 12/27/20 21:00 DIRECT BRANDON Ondansetron HCl 4 mg 12/26/20 17:55 Ondansetron 4 Mg/2 Ml Inj IV Q8H PRN Nausea And Vomiting Oxycodone/Acetaminophen 1 tab 12/26/20 17:55 12/27/20 00:08 Oxycodone /Acetaminophen 5-325mg Tab PO 1 tab Q8H PRN Administration Pain, Moderate (4-6) Sodium Chloride 10 ml 12/26/20 22:00 12/26/20 22:13 Sodium Chloride 0.9% 10 Ml Flush Syringe IV 10 ml BID BRANDON Administration Sodium Chloride 10 ml 12/26/20 17:55 Sodium Chloride 0.9% 10 Ml Flush Syringe IV PRN PRN LINE FLUSH
--- NOTE | 2020-12-27 15:13 | Fluoroscopy Report ---
INTRAOPERATIVE FLUOROSCOPY: ERCP INDICATION: ERCP. TECHNIQUE: Intraoperative spot images were obtained during the procedure. FINDINGS: Balloon sweep was performed after injection of contrast. Enterotomy was performed. Please see procedu re note for details. Fluoroscopy Time: 1 minute 9 seconds. Fluoroscopy Images: 11. Signer Name: Alfa Flores MD Signed: 12/27/2020 3:09 PM Workstation Name: [id number]
[2020-12-28] MEDS: oxyCODONE /ACETAMINOPHEN 5-325MG TAB PO PRN (05:08)
[2020-12-28] MEDS: SODIUM CHLORIDE 0.9% 1000 ML 1,000 ML IV SCH (05:09)
[2020-12-28 05:43] LABS: Alanine Aminotransferase 152 units/L (7-56); Albumin 3.4 g/dL (3.9-5); Blood Urea Nitrogen 7 mg/dL (7-17); Calcium 8.6 mg/dL (8.4-10.2); Hemolysis Index 5
[2020-12-28 05:45] LABS: BUN/Creatinine Ratio 12
--- NOTE | 2020-12-28 12:32 | Discharge Summary ---
Providers - Providers Date of Admission: 12/26/20 16:58 Date of discharge: 12/28/20 Attending physician: JUS LOWE MD Primary care physician: [employer] Hospitalization Reason for admission: Pancreatitis/ERCP Condition: Stable Pertinent studies: ERCP Procedures: ERCP Hospital course: 35-year-old female with history of choledocholithiasis and recent gallbladder removal who presented for abdominal pain. Patient was supposed to have outpatient ERCP that day. Gastroenterology was consulted and ERCP was performed. Improvement in liver enzymes were noted postprocedure. Patient was discharged home next day. Disposition: 01 HOME / SELF CARE / HOMELESS Final Discharge Diagnosis (Prints w/discharge instructions): Choledocholitiasis. Pancreatitis Time spent for discharge: 20 minutes Core Measure Documentation - Palliative Care Palliative Care/ Comfort Measures: Not Applicable - Core Measures Any of the following diagnoses?: none - VTE Discharge Requirements Deep Vein Thrombosis/Pulmonary Embolism Present on Admission: No Has pt received <5 days of overlap therapy or INR<2.0: No Anticoagulant overlap therapy prescribed at discharge: No Contraindication No Overlap Therapy order at DC: Not Indicated - Acute AL Discharge Requirements Aspirin at discharge: No Reason for no aspirin on DC: Patient refusal (Not indicated) MARÍA ELENA/ARB for LVSD if EF <40%: Not Applicable Reason for no MARÍA ELENA/ARB: Patient refusal (Not indicated) Beta charlene at discharge: No Reason for no beta charlene on DC: Patient refusal (Not indicated) Statin for LDL = or >100 mg/dl on DC: Not Applicable Reason for no statin on DC: Patient refusal (Not indicated) Exam - Physical Exam Narrative exam: GENERAL: Well-developed well-nourished. Lying in bed in no acute distress. HEENT: No scleral icterus noted. CHEST/LUNGS: CTAB on room air HEART/CARDIOVASCULAR: RRR. No murmur, rubs or gallops appreciated. ABDOMEN: +BS. Nontender. Non-distended. SKIN: No rashes noted. NEURO: No focal motor deficit. Follows all commands. EXTREMITIES: No cyanosis, clubbing or edema. PSYCH: Cooperative. - Constitutional Vitals: Temp Pulse Resp BP Pulse Ox 97.8 F 67 20 102/58 97 12/28/20 07:42 12/28/20 07:42 12/28/20 07:42 12/28/20 07:42 12/28/20 09:12 Plan Plan of Treatment: Discharge home, follow up with primary care and GI Assessment: Stable. Liver enzymes downtrending. Patient with minimal pain, tolerating food and ambulatory. Discharge home with GI follow up. Follow up with: PRIMARY MD JAIME [Primary Care Provider] - 7 Days KENNY SARAH MD [Staff Physician] - 10 Days
[2020-12-28 12:38] VITALS: BP 93/67
--- NOTE | 2020-12-28 13:22 | Electrocardiograph Report ---
[facility] Test Date: 2020-12-26 Test Time: 14:47:30 Pat Name: REJI GUZMÁN Department: Room: A469 1 Gender: F Gravity Manager: [place] : 1985 Requested By: LETICIA PARKER Order Number: [id number] Reading MD: Marcus Roman Measurements Intervals [place] Rate: 79 P: 52 MA: 146 QRS: 58 QRSD: 77 T: 27 QT: 388 QTc: 445 Interpretive Statements Sinus rhythm Compared to ECG 12/21/2020 02:14:52 No significant changes Electronically Signed On 12-28-2020 13:22:11 EDT by Marcus Roman
== END 2020-12-28 14:28 | disposition home or self-care (01) | DRG 444 ==
LOC: ED 13:19 → 4A 16:58
PROVIDERS: ADMIT Internal Medicine; ATTEND Student in an Organized Health Care Education/Training Program
PROC: 0F798ZZ Dilation of Common Bile Duct, Via Natural or Artificial Opening Endoscopic (ICD-10-PCS; principal; 2020-12-27)
PROC: 0F778ZZ Dilation of Common Hepatic Duct, Via Natural or Artificial Opening Endoscopic (ICD-10-PCS; 2020-12-27)
PROC: BF141ZZ Fluoroscopy of Gallbladder, Bile Ducts and Pancreatic Ducts using Low Osmolar Contrast (ICD-10-PCS; 2020-12-27)
DX: K80.50 Calculus of bile duct without cholangitis or cholecystitis without obstruction (principal); K85.10 Biliary acute pancreatitis without necrosis or infection; F17.213 Nicotine dependence, cigarettes, with withdrawal; Z71.6 Tobacco abuse counseling; Z90.49 Acquired absence of other specified parts of digestive tract; E66.9 Obesity, unspecified; K83.8 Other specified diseases of biliary tract; Z68.34 Body mass index [BMI] 34.0-34.9, adult; K21.9 Gastro-esophageal reflux disease without esophagitis
CPT/HCPCS: 36415; 74328; 80053; 83690; 85025; 85027; 93005; 99406; G0378; C1726; J1170; J1610; J1885; J2250; J2405; J2704; J7030; Q9967

== ENCOUNTER 2021-08-26 17:16 | Emergency (ER) | payer MEDICAID, OTHER ==
[2021-08-26 17:40] VITALS: BP 117/68
== END 2021-08-27 07:50 | disposition left against medical advice (07) ==
LOC: ED 17:16
DX: R42 Dizziness and giddiness (principal); R53.83 Other fatigue; Z53.21 Procedure and treatment not carried out due to patient leaving prior to being seen by health care provider